=== PATIENT | male | born 1965 | race Caucasian/White ===

== ENCOUNTER 2021-01-01 08:59 | Emergency (ER) | payer MEDICAID, SELFPAY ==
[2021-01-01 09:14] VITALS: BP 151/100; PULSE 87; RESP 18; TEMP 36.5; O2SAT 95; BMI 32.3
--- NOTE | 2021-01-01 09:48 | ED.GENADULT ---
HPI - General Adult General Chief complaint: Back Pain/Injury Stated complaint: BACK PAIN Time Seen by Provider: 01/01/21 09:48 Source: patient and reflector driller and deburrer Limitations: language barrier History of Present Illness HPI narrative: Patient interviewed with the reflector driller and deburrer. Patient presents with lower back pain worsening over the past week. Patient works as a personal development coach with extensive labor. Patient denies any nausea vomiting loss of bowel movements. Patient has a known history of back pain and told he has arthritis in the past. Patient states he has been told he has arthritis of multiple joints. Patient has taken no [id number] medications for the pain. Patient states pain increases when he lifts anything heavy or twists his back. Pain is 7/10. Patient states he has not been vaccinated for the COVID virus at this time but plans on getting the vaccine. Symptoms are mild to moderate. Related Data Previous Rx's Medication Instructions Recorded ibuprofen 600 mg PO Q6H #30 tab 01/01/21 methocarbamol [Robaxin-750] 750 mg PO TID #20 tab 01/01/21 Allergies Allergy/AdvReac Type Severity Reaction Status Date / Time FRUIT Allergy Unknown SWELLING Uncoded 05/15/20 18:13 Review of Systems Review of Systems: Constitutional : No Weight loss, No Fever, No Chills ENT/Mouth : No Hearing loss, No Ear Pain, No Nasal Congestion, No Sinus Pain, No Hoarseness, No sore throat, No Rhinorrhea, No Swallowing Difficulty Eyes: No Eye Pain, No Swelling, No Redness, No Foreign Body, No Discharge, No Vision Changes Cardiovascular : No Chest Pain, No SOB, No Dyspnea on Exertion Respiratory : No Cough, No Sputum, No Wheezing, No Smoke Exposure, No Dyspnea Gastrointestinal : No Nausea, No Vomiting Genitourinary : No loss of bowel movements or incontinence. Musculoskeletal : Lumbar back pain Neuro : No Weakness, No Numbness, No Paresthesias, No Loss of Consciousness, No Dizziness, No Headache Psych : No Anxiety/Panic, No Depression, No SI/HI/AH/VH, No Social Issues, Heme/Lymph: No Bruising, No Bleeding,No Lymphadenopathy Endocrine : No Polyuria, No Polydipsia, No Temperature Intolerance PMFSH Past Medical History Attestation statement: The following information was validated with the patient. Medical History Arthritis No known health problems Social History Social History Advance Directives: Yes Advance Directives Information Provided: Yes Advance Directives on File: No Physical Exam Vital Signs: Vital Signs: Last Vital Signs Temp 97.7 F 01/01/21 09:14 Pulse 87 01/01/21 09:14 Resp 18 01/01/21 10:40 BP 151/100 H 01/01/21 09:14 Pulse Ox 95 01/01/21 09:14 Body Mass Index 32.3 vital signs have been reviewed as normal and appeared to be correct. Blood pressure normal. Heart rate normal. Respiration rate normal. Temperature normal. Oxygen saturation normal. Appearance: Alert. Oriented X3. No acute distress. Head: Normal external exam. Normocephalic. Atraumatic. No Tamayo signs noted. No raccoon eyes noted Eyes: PERRLA. EOMI. Conjunctiva and sclera normal. Eyelids normal. ENT: Pharynx normal. Uvula midline. Moist mucous membranes. No trismus noted. No drooling noted. No muffled voice noted. Neck: Soft full range of motion, no JVD CVS: Heart regular rate and rhythm no murmurs and rubs Respiratory: Breath sounds are clear to auscultation bilaterally. No accessory muscle use noted. Abdomen: Soft nontender no rebound or guarding positive bowel sounds Back: Diffuse paraspinal muscle tenderness positive straight leg raise on the right. Pain increases with any range of motion and ambulation. Skin: Skin warm and dry. Normal skin color. Normal skin turgor. No rashes/lesions/lacerations noted. Extremities: No lower extremity edema. Extremities exhibit normal range of motion. Extremities nontender. Neuro: Oriented X 3. No motor deficit. No sensory deficit. Reflexes normal. Course Course Course Narrative: Patient's exam is consistent with underlying arthritic changes in the back and/or disc disease. Positive straight leg raise on the right. Close follow-up with PCP is recommended for possible physical therapy referral and outpatient MRI. Discharge Plan Discharge Clinical Impression: Lumbar radiculopathy, Sciatica Patient Disposition: Home, Self-Care Instructions: Acute Low Back Pain (ED) Additional Instructions: Close follow-up as needed with PCP for possible physical therapy referral and/or outpatient MRI medications as directed. Prescriptions: New ibuprofen 600 mg tablet 600 mg PO Q6H Qty: 30 RF: 0 methocarbamol [Robaxin-750] 750 mg tablet 750 mg PO TID Qty: 20 RF: 0 Stand Alone Forms: Work/School Release Interventions: ED Discharge Assessment Last Done: 01/01/21 10:46 Discharge Date/Time: 01/01/21 10:46
[2021-01-01] MEDS: Ketorolac Tromethamine 30 MG/ML VIAL IM (10:00)
[2021-01-01 10:40] VITALS: RESP 18
== END 2021-01-01 10:46 | disposition home or self-care (01) ==
PROVIDERS: Emergency Provider Emergency Medicine; PCP Internal Medicine
DX: M54.16 Radiculopathy, lumbar region (principal); M54.41 Lumbago with sciatica, right side
CPT/HCPCS: 96372; 99283; 99284; J1885

== ENCOUNTER 2021-03-24 10:12 | Outpatient (REF) | payer MEDICAID, SELFPAY ==
--- NOTE | ~2021-03-24 | XR_ITS ---
EXAMINATION: XR HAND, LEFT CLINICAL INFORMATION: Iterative finger pain. COMPARISON: None TECHNIQUE: PA, lateral, and oblique views of the left hand. FINDINGS: The bones and soft tissues are normal. No fracture. Alignment is anatomic. Joint spaces are maintained. No erosions or soft tissue calcifications. XR/XR hand LT min 3V IMPRESSION: Unremarkable left hand exam.
== END 2021-03-24 10:13 | disposition home or self-care (01) ==
LOC: HO.XRAY 10:12
PROVIDERS: Absent Provider Internal Medicine; PCP Internal Medicine; Visit Provider General Practice
DX: M65.322 Trigger finger, left index finger (principal); M79.642 Pain in left hand
CPT/HCPCS: 73130

== ENCOUNTER 2021-06-09 11:01 | Emergency (ER) | payer MEDICAID, SELFPAY ==
--- NOTE | ~2021-06-09 | CT_ITS ---
EXAMINATION: CT LUMBAR SPINE WITHOUT CONTRAST CLINICAL INFORMATION: Low back pain. COMPARISON: None TECHNIQUE: Axial 2 mm thin and reformatted 2 mm thin sagittal coronal images of lumbar spine were obtained. This CT examination was performed using dose optimization techniques as appropriate, variously including the following: *Automated exposure control *Adjustment of mA and/or kV according to patient size (this includes techniques or standardized protocols for targeted exams where dose is matched to indication/reason for exam; i.e. extremities or head) *Use of iterative reconstruction technique DLP; 520 mGy-cm FINDINGS: There is normal lumbar lordosis. The vertebral heights, alignment are normal. There is mild loss of L5-S1 disc height with mild posterior spondylosis L4-L5 and L5/S1 disc levels. Rest the disc heights are normal. The T12-L1, L1-L2 and L2-L3 disc levels are unremarkable. At L3-L4 disc level is minimal bulge flattening the ventral thecal sac without spinal canal stenosis. The neural foramina are mildly narrowed bilaterally. At L4-L5 disc level there is a posterior annular calcification/bulge complex with mild AP canal stenosis. The neural foramina are patent bilaterally. At L5-S1 disc level there is diffuse bulge with mild AP canal stenosis. The neural foramina are patent bilaterally. There is no visible fracture, lytic or sclerotic process seen. No pars defect or listhesis. The paravertebral soft tissues are normal. CT/CT lumbar spine wo con IMPRESSION: No acute fracture, lytic or sclerotic process. Mild degenerative disc bulges L3-L4, annular calcification/bulge complex at L4-L5 and mild bulge at L5-S1 disc levels with mild AP canal stenosis at the L4-L5 and L5-S1 disc levels.
--- NOTE | ~2021-06-09 | US_ITS ---
EXAMINATION: US VENOUS ULTRASOUND WITH DOPPLER LOWER EXTREMITY, RIGHT CLINICAL INFORMATION: Pain right knee to calf. COMPARISON: None TECHNIQUE: Ultrasound of the deep veins is performed from the hip to the calf with compression sonography and color and pulse Doppler assessment. Spectral analysis with color-flow imaging is performed. FINDINGS: There is normal venous compression and respiratory variation and augmented flow. The visualized common femoral vein, superficial femoral vein, profunda femoral vein, popliteal vein, and the trifurcation region shows no evidence of deep venous thrombosis. There is no significant popliteal fossa cyst. If the patient's symptoms persist, followup ultrasound in 5 days 7 days might be of value to exclude proximal propagation from a non-visualized calf vein. US/US venous duplex LE RT IMPRESSION: No DVT demonstrated in the right lower extremity.
[2021-06-09 11:29] VITALS: BP 152/90; PULSE 74; RESP 18; TEMP 36.6; O2SAT 96; BMI 34.3
[2021-06-09 12:35] LABS: MANUAL DIFF FLAG NO
[2021-06-09 12:37] LABS: Basophils Percent Auto 0.3 % (0-2); Eosinophils Absolute Auto 0.2 X10*3/uL (0.0-0.4); Eosinophils Percent Auto 2.5 % (0-4); Hematocrit 41.5 % (42-52); Hemoglobin 14.9 g/dl (14.0-18.0); Imm Gran Abs Auto 0.02 X10*3/uL (0.00-0.03); Imm Gran Pct Auto 0.3 % (0.0-0.4); Lymphocytes Percent Auto 31.2 % (20-40); Mean Corpuscular HGB Conc 35.9 g/dl (31.0-36.0); Mean Corpuscular Hemoglobin 32.9 pg (27.0-33.0); Mean Corpuscular Volume 91.6 fL (80-98); Monocytes Absolute Auto 0.6 X10*3/uL (0.1-1.2); Monocytes Percent Auto 9.7 % (2-11); Neutrophils Absolute Auto 3.6 X10*3/uL (2.0-8.3); Platelet Count 164 X10*3/uL (160-400); Red Blood Count 4.53 X10*6/uL (4.60-5.80); Red Cell Distribution Width 11.4 % (11.0-16.0); White Blood Count 6.4 X10*3/uL (4.8-10.8)
[2021-06-09 13:09] LABS: Alanine Aminotransferase 41 U/L (0-40); Albumin Level 4.3 g/dL (3.5-5.0); Alkaline Phosphatase 112 U/L (39-117); Anion Gap 14 (12-20); Aspartate Amino Transferase 27 U/L (5-37); Bilirubin Direct 0.2 mg/dL (0.0-0.5); Bilirubin Total 0.4 mg/dL (0.0-1.0); Blood Urea Nitrogen 14 mg/dL (9-16); Calcium 9.4 mg/dL (8.4-10.2); Carbon Dioxide 26 mmol/L (22-29); Chloride 100 mmol/L (96-108); Estimated Glomerular Filt Rate > 60; Glucose Random 279 mg/dL (60-115); Lipase 58 U/L (8-78); Potassium 4.5 mmol/L (3.3-5.1); Sodium 135 mmol/L (135-145); Total Protein 7.6 g/dL (6.5-8.0)
[2021-06-09 15:37] LABS: Appearance Urine CLEAR; Color Urine YELLOW; Glucose Urine UA >=1000 MG/DL (NEG); Leukocyte Esterase Urine NEG (NEG); Nitrite Urine NEG (NEG); Specific Gravity - Urine 1.025 (1.005-1.025); Urine Blood NEG (NEG); Urine Ketones 5 MG/DL (NEG); Urine Protein NEG (NEG-TRACE)
[2021-06-09 15:57] LABS: Mucus Urine TRACE /LPF; Squamous Epithelial Cell Urine TRACE /LPF
[2021-06-09 15:58] LABS: RBC Urine 0-2 /HPF (0); WBC Urine 0 /HPF (0-4)
[2021-06-09] MEDS: oxyCODONE HCl Immed Release 5 MG TABLET PO (16:03)
--- NOTE | 2021-06-09 16:48 | ED_ITS ---
HPI - Back Pain/Injury General Chief Complaint: Extremity Injury, Lower Stated Complaint: rt leg pain Time Seen by Provider: 06/09/21 15:40 Source: patient Mode of arrival: ambulatory Limitations: no limitations History of Present Illness HPI Narrative: 55-year-old male with a past medical history of diabetes, hyper tension, hyperlipidemia, Lyme disease, degenerative joint disease and arthritis presenting to the ED with complaints of lower back pain radiating to his right knee/calf for the past 2 weeks worse today. He reports he has never had this in the past. He is concerned for blood clot due to someone told him he could have a blood clot in his leg. He denies any fevers, chills, dizziness, headaches, ne ck pain/stiffness, nausea/vomiting, change in vision, chest pain or shortness of breath and dyspnea on exertion, orthopnea, abdominal pain, dysuria, hematuria, abnormal penile discharge, diarrhea or constipation, recent travel or sick contacts, recent immobilizations, recent travel on a long plane/train/car ride, history of hypercoagulation disorder, any estrogen usage, history of cancer or recent surgery, urinary/bowel retention/incontinence or any other symptoms complaints or concerns at this time. MD elicited complaint: back pain Onset (ago): week(s) (For the past 2 weeks worse today) Timing: constant and progressively worsening Severity: moderate Similar Symptoms Previously: No Quality: sharp and aching Location: lumbar spine Radiation: right upper leg and right leg below the knee Exacerbating factors: movement Relieving factors: none Context: unknown Associated symptoms: denies other symptoms Work related injury: No Related Data Previous Rx's Medication Instructions Recorded ibuprofen 600 mg tablet 600 mg PO Q6H #30 tab 01/01/21 methocarbamol 750 mg tablet 750 mg PO TID #20 tab 01/01/21 (Robaxin-750) acetaminophen 500 mg tablet 1,000 mg PO QID PRN #14 tab 06/09/21 (Tylenol Extra Strength) cyclobenzaprine 10 mg tablet 10 mg PO Q8H PRN #14 tab 06/09/21 ibuprofen 800 mg tablet 800 mg PO Q8H PRN #14 tab 06/09/21 lidocaine HCl 4 % topical cream 1 appl TOPICAL BID PRN #120 g 06/09/21 (Aspercreme (lidocaine HCl)) oxycodone 5 mg tablet 5 mg PO Q6H PRN #14 tab 06/09/21 prednisone 20 mg tablet 40 mg PO DAILY 5 Days #10 tab 06/09/21 Allergies Allergy/AdvReac Type Severity Reaction Status Date / Time FRUIT Allergy Unknown SWELLING Uncoded 05/15/20 18:13 Review of Systems Review of Systems: Constitutional : No trauma, No Weight loss, No Fever, No Chills, ENT/Mouth : No Hearing loss, No Ear Pain, No Nasal Congestion, No Sinus Pain, No Hoarseness, No sore throat, No Rhinorrhea, No Swallowing Difficulty Cardiovascular : No Chest Pain, No SOB Respiratory : No Cough, No Dyspnea Gastrointestinal : No Nausea, No Vomiting, No Diarrhea, No abdominal Pain, No Hematochezia, No Melena Genitourinary : No Dysuria, No Urinary Frequency, No Hematuria, No Urinary or Bowel Incontinence/retention Musculoskeletal : + Back pain, + right leg/knee pain/calf pain, No neck pain, No joint stiffness, No joint swelling Skin : No Skin Lesions, No rash or signs of infection Neuro : No Weakness, No radiation, No Numbness, No Paresthesias, No headache, no loss of bowel or bladder incontinence, no saddle anesthesia, Focal weakness, No radiation Denies history of IV drug usage. Yes all other systems are reviewed and are negative [facility] Past Medical History Attestation statement: The following information was validated with the patient. Medical History Arthritis Social History Social History Advance Directives: No Physical Exam Vital Signs: Vital Signs: Last Vital Signs Temp 97.9 F 06/09/21 11:29 Pulse 74 06/09/21 11:29 Resp 18 06/09/21 11:29 BP 152/90 H 06/09/21 11:29 Pulse Ox 96 06/09/21 11:29 Body Mass Index 34.3 vital signs have been reviewed as normal and appeared to be correct. Blood pressure normal. Heart rate normal. Respiration rate normal. Temperature normal. Oxygen saturation normal. Appearance: Alert. Oriented X3. No acute distress. Head: Normal external exam. Normocephalic. Atraumatic. Eyes: PERRLA. EOMI. Conjunctiva and sclera normal. Eyelids normal. ENT: EAC normal. TM's Normal. Pharynx normal. Uvula midline. Moist mucous membr anes. Neck: Normal inspection. Neck supple. FROM. No adenopathy. Thyroid Normal. No meningeal signs. No neck mass noted. CVS: Normal heart rate and rhythm. Heart sound normal. No murmurs noted. Pulses normal throughout. Respiratory: No respiratory distress. Painless inspiration. Breath sounds nor mal. No wheezes/rales/rhonchi noted. Chest nontender. No accessory muscle usage noted or decreased air movement noted. Abdomen: Soft and nontender. Bowel sounds normal in all 4 quadrants. No distent ion noted. No organomegaly noted. No visible injury noted. Back: No CVA tenderness. Full range of motion noted. No obvious deformities, or edema. Mild para-spinal muscular tenderness from lumbar region to coccyx. Full ROM in back and lower extremities. 5/5 strength hip extension/flexion, abductio n, adduction. Mild Lumbar pain with hip flexion against resistance. Straight leg raise test negative on right; Straight leg raise test negative on left; Reflexes normal ankle and knee bilaterally; EHL motor strength normal bilaterally. No rashes/lesion/induration/fluctuance or signs infection noted. Skin: Skin warm and dry. Normal skin color. Normal skin turgor. No rashes/lesions/lacerations noted. Extremities: Patient with tenderness outpatient to right posterior knee/calf. No signs of infection. No edema noted. Otherwise all other Extremities exhibit normal range of motion and nontender. Neuro: Oriented X 3. No motor deficit. No sensory deficit. Reflexes normal. Patient has a normal steady gait. Course Course Course Narrative: 55-year-old male with a past medical history of diabetes, hypertension, hyperlipidemia, Lyme disease, degenerative joint disease and arthritis presenting to the ED with complaints of lower back pain radiating to his right knee/calf for the past 2 weeks worse today. He reports he has never had this in the past. He is concerned for blood clot due to someone told him he could have a blood clot in his leg. He denies any fevers, chills, dizziness, headaches, neck pain/stiffness, nausea/vomiting, change in vision, chest pain or shortness of breath and dyspnea on exertion, orthopnea, abdominal pain, dysuria, hematuria, abnormal penile discharge, diarrhea or constipation, recent travel or sick contacts, recent immobilizations, recent travel on a long plane/train/car ride, history of hypercoagulation disorder, any estrogen usage, history of ca ncer or recent surgery, urinary/bowel retention/incontinence or any other symptoms complaints or concerns at this time. Labs were obtained in triage and patient noted to have mild anemia. A random g lucose 279. ALT 41. Otherwise all other labs within normal limits. UA revealed 1000 glucose and 5 ketones otherwise no evidence of UTI. Gonorrhea/chlamydia are pending. Venous duplex ultrasound of right lower extremity negative for DVT or any other acute processes. CT scan of lumbar spine without contrast revealed chronic changes such as bulging disc and arthritis otherwise no other acute proc esses. Therefore at this time will DC home with symptomatic treatment I printed out the results and given to the patient so he can follow up with primary care provider for further evaluation treatment and referral to possibly portfolio specialist and to return if any new or worsening symptoms. Patient understands agrees with this plan. MDM - Back Pain/Injury Medical Records Attestation: I reviewed the patient's medical records. Lab Data Attestation: I reviewed the patient's lab results. Result diagrams: 06/09/21 12:32 06/09/21 12:32 Labs: Lab Results 06/09/21 06/09/21 06/09/21 Range/Units 12:32 12:32 15:29 WBC 6.4 (4.8-10.8) X10*3/uL RBC 4.53 L (4.60-5.80) X10*6/uL Hgb 14.9 (14.0-18.0) g/dl Hct 41.5 L (42-52) % MCV 91.6 (80-98) fL MCH 32.9 (27.0-33.0) pg MCHC 35.9 (31.0-36.0) g/dl RDW 11.4 (11.0-16.0) % Plt Count 164 (160-400) X10*3/uL MPV 10.0 (9.4-12.4) fL Immature Gran % (Auto) 0.3 (0.0-0.4) % Neut % (Auto) 56.0 (45-73) % Lymph % (Auto) 31.2 (20-40) % [place] % (Auto) 9.7 (2-11) % Eos % (Auto) 2.5 (0-4) % Baso % (Auto) 0.3 (0-2) % Lymph # (Auto) 2.0 (1.2-4.9) X10*3/uL [place] # (Auto) 0.6 (0.1-1.2) X10*3/uL Eos # (Auto) 0.2 (0.0-0.4) X10*3/uL Baso # (Auto) 0.0 (0.0-0.2) X10*3/uL Abs Immat Gran (auto) 0.02 (0.00-0.03) X10*3/uL Absolute Neuts (auto) 3.6 (2.0-8.3) X10*3/uL Absolute Nucleated RBC 0.000 (0.0-0.012) X10*3/uL Nucleated RBC % (auto) 0.0 (0.0-0.2) /100WBC Sodium 135 (135-145) mmol/L Potassium 4.5 (3.3-5.1) mmol/L Chloride 100 (96-108) mmol/L Carbon Dioxide 26 (22-29) mmol/L Anion Gap 14 (12-20) BUN 14 (9-16) mg/dL Creatinine 0.90 (0.5-1.4) mg/dL Estim Creat Clear Calc 93.0 Estimated GFR > 60 Random Glucose 279 H (60-115) mg/dL Calcium 9.4 (8.4-10.2) mg/dL Total Bilirubin 0.4 (0.0-1.0) mg/dL Direct Bilirubin 0.2 (0.0-0.5) mg/dL AST 27 (5-37) U/L ALT 41 H (0-40) U/L Alkaline Phosphatase 112 (39-117) U/L Total Protein 7.6 (6.5-8.0) g/dL Albumin 4.3 (3.5-5.0) g/dL Lipase 58 (8-78) U/L Urine Color YELLOW Urine Appearance CLEAR Urine pH 6.0 (5.0-8.0) Ur Specific [place] 1.025 (1.005-1.025) Urine Protein NEG (NEG-TRACE) MG/DL Urine Glucose (UA) >=1000 H (NEG) MG/DL Urine Ketones 5 (NEG) MG/DL Urine Blood NEG (NEG) Urine Nitrite NEG (NEG) Ur Leukocyte Esterase NEG (NEG) Urine RBC 0-2 (0) /HPF Urine WBC 0 (0-4) /HPF Ur Squamous Epith Cells TRACE /LPF Urine Bacteria NONE /LPF Urine Mucus TRACE /LPF Imaging Data Venous duplex ultrasound of right lower extremity: Attestation: I personally reviewed and interpreted this imaging study as follows: Radiologist's impression: FINDINGS: There is normal venous compression and respiratory variation and augmented flow. The visualized common femoral vein, superficial femoral vein, profunda femoral vein, popliteal vein, and the trifurcation region shows no evidence of deep venous thrombosis. ? There is no significant popliteal fossa cyst. If the patient's symptoms persist, followup ultrasound in 5 days 7 days might be of value to exclude proximal propagation from a non-visualized calf vein. US/US venous duplex LE RT IMPRESSION: No DVT demonstrated in the right lower extremity. CT scan of thoracic spine without contrast: Attestation: I personally reviewed and interpreted this imaging study as follows: Radiologist's impression: FINDINGS: There is normal lumbar lordosis. The vertebral heights, alignment are normal. There is mild loss of L5-S1 disc height with mild posterior spondylosis L4-L5 and L5/S1 disc levels. Rest the disc heights are normal. The T12-L1, L1-L2 and L2-L3 disc levels are unremarkable. At L3-L4 disc level is minimal bulge flattening the ventral thecal sac without spinal canal stenosis. The neural foramina are mildly narrowed bilaterally. At L4-L5 disc level there is a posterior annular calcification/bulge complex with mild AP canal stenosis. The neural foramina are patent bilaterally. At L5-S1 disc level there is diffuse bulge with mild AP canal stenosis. The neural foramina are patent bilaterally. There is no visible fracture, lytic or sclerotic process seen. No pars defect or listhesis. The paravertebral soft tissues are normal. CT/CT lumbar spine wo con IMPRESSION: No acute fracture, lytic or sclerotic process. ? Mild degenerative disc bulges L3-L4, annular calcification/bulge complex at L4-L5 and mild bulge at L5-S1 disc levels with mild AP canal stenosis at the L4-L5 and L5-S1 disc levels.? Critical Care Time Critical Care Time Critical Care Time: Yes Total Critical Care Time: 60 Attestation: I personally attest to this time spent taking care of the patient Discharge Plan Discharge Clinical Impression: Degenerative joint disease, Bulging lumbar disc Patient Disposition: Home, Self-Care Instructions: Osteoarthritis (ED), Acute Low Back Pain (ED), Lumbar Radicu lopathy (ED), Lower Back Exercises (ED) Prescriptions: New cyclobenzaprine 10 mg tablet 10 mg PO Q8H PRN (Reason: Muscle spasm) Qty: 14 RF: 0 ibuprofen 800 mg tablet 800 mg PO Q8H PRN (Reason: pain) Qty: 14 RF: 0 prednisone 20 mg tablet 40 mg PO DAILY 5 Days Qty: 10 RF: 0 acetaminophen [Tylenol Extra Strength] 500 mg tablet 1,000 mg PO QID PRN (Reason: fever or pain) Qty: 14 RF: 0 oxycodone 5 mg tablet 5 mg PO Q6H PRN (Reason: pain) Qty: 14 RF: 0 lidocaine HCl [Aspercreme (lidocaine HCl)] 4 % cream 1 appl topical BID PRN (Reason: pain) Qty: 120 RF: 0 No Action ibuprofen 600 mg tablet 600 mg PO Q6H Qty: 30 RF: 0 methocarbamol [Robaxin-750] 750 mg tablet 750 mg PO TID Qty: 20 RF: 0 Referrals: Rajat Leonard MD [Primary Care Provider] - 2 days Stand Alone Forms: Work/School Release Print Language: Spanish
[2021-06-10 02:13] LABS: CT PCR NOT DETECTED (Not Detect.)
[2021-06-10 02:14] LABS: NG PCR NOT DETECTED (Not Detect.)
== END 2021-06-09 17:49 | disposition home or self-care (01) ==
PROVIDERS: Physician Assistant Medical; Emergency Provider Emergency Medicine; PCP Internal Medicine
DX: M47.896 Other spondylosis, lumbar region (principal); R60.0 Localized edema; M25.561 Pain in right knee; Z79.899 Other long term (current) drug therapy; Z20.828 Contact with and (suspected) exposure to other viral communicable diseases
CPT/HCPCS: 36415; 72131; 80048; 80076; 81001; 83690; 85025; 87491; 87591; 93971; 99284; 99291

== ENCOUNTER → 2022-09-16 10:22 | Outpatient (BNVA) | payer MEDICAID, SELFPAY | PROVIDERS: PCP Internal Medicine; Referring Provider Internal Medicine; Visit Provider Surgery | DX: L72.3 Sebaceous cyst (principal) | CPT/HCPCS: 99202 ==

== ENCOUNTER 2022-10-12 07:27 | Outpatient (REF) | payer MEDICAID, SELFPAY ==
[2022-10-12 07:35] VITALS: BMI 32.3
[2022-10-12 07:36] VITALS: BP 130/77; PULSE 66; RESP 16; TEMP 36.4; O2SAT 96
[2022-10-12 08:19] VITALS: BP 128/80; PULSE 64; RESP 16; O2SAT 98
--- NOTE | 2022-10-12 08:23 | P.OP_ITS ---
Operative Note Operative Note Date of Service: 10/12/22 Narrative: Preoperative diagnosis: Epidermal inclusion cyst posterior mid back Postoperative diagnosis: Same Procedure: Excision of epidermal inclusion cyst midback Surgeon: Justin Pride MD Nozzle And Sleeve Worker: None Anesthesia: Sensorcaine 0.5% with epinephrine Indications for procedure: Enlarging epidermal inclusion cyst midback with increased pain. Operative findings: 1.5 cm epidermal inclusion cyst midback Specimen: Epidermal inclusion cyst midback Estimated blood loss: Less than 1 mL Complications: None Procedure details: Patient was brought to the minor surgery suite and placed in a prone position. The site of surgery was confirmed by the patient in the mid back. After assuring informed consent the skin was prepped with Betadine and draped in a sterile fashion. Local anesthesia was then infiltrated circumferentially around the cyst. An oblique incision was then created to include the central punctum. The incision was carried down through epidermis, dermis and into the subcutaneous tissue. Dissection was continued around the cyst wall. The cyst was completely dissected free from the subcutaneous tissue passed off the table for further examination by pathology. After assuring adequate hemostasis the dermis was reapproximated using interrupted 3-0 Polysorb sutures. Skin was then closed using interrupted 3-0 Prolene sutures. Sterile dressings consisting of 2 x 2 gauze and Tegaderm were then applied. The patient tolerated the procedure well. Sponge, instrument, and needle counts were correct. The patient was discharged to home in stable condition.
== END 2022-10-12 07:28 | disposition home or self-care (01) ==
LOC: HO.MS 07:27
PROVIDERS: PCP Internal Medicine; Visit Provider Surgery
PROC: (CPT 11403; principal; 2022-10-12 08:00)
DX: L72.0 Epidermal cyst (principal)
CPT/HCPCS: 11403; 88304

== ENCOUNTER → 2022-10-19 09:04 | Outpatient (BNVA) | payer MEDICAID, SELFPAY | PROVIDERS: PCP Internal Medicine; Visit Provider Surgery | DX: Z13.89 Encounter for screening for other disorder (principal) ==

== ENCOUNTER 2022-11-22 09:36 | Emergency (ER) | payer MEDICAID, SELFPAY ==
[2022-11-22 09:39] VITALS: BP 116/75; PULSE 65; RESP 20; TEMP 36.6; O2SAT 97; BMI 34.3
--- NOTE | 2022-11-22 10:45 | ED.GENADULT ---
HPI - General Adult General Chief complaint: General Medical Stated complaint: r sided pain back head into back and legs Time Seen by Provider: 11/22/22 10:42 Source: patient and traveling sales representative Mode of arrival: ambulatory Limitations: language barrier History of Present Illness HPI narrative: Patient is a 57 year old assigned male at with a history of bulging discs and a recent sebaceous cyst removal presenting to the emergency department today with concerns over his surgical wound and right sided back pain. Patient states that he is continuing to have right sided back pain and yesterday he noticed some discharge from his previous sebaceous cyst removal wound. Patient denies any dizziness, lightheadedness, abdominal pain, nausea, vomiting, fever, chills, blurry vision, double vision, loss of vision, chest pain, difficulty breathing, shortness of breath, night sweats, pain with urination, increased urinary frequency, increased urinary urgency, blood in his urine or stool, syncope or a near syncopal episode, recent trauma or falls, bowel incontinence, bladder incontinence, bowel retention, bladder retention, or any other complaints at this time. Onset (ago): day(s) Location: back Severity: mild Severity scale (1-10): 3 Relieving factors: none Exacerbating factors: none Associated symptoms: denies other symptoms Treatments prior to arrival: none Related Data Home Medications Medication Instructions Recorded Confirmed blood sugar diagnostic (FreeStyle #10 ea 09/16/22 10/19/22 Lite Strips) lancets 33 gauge (TRUEplus Lancets) #100 ea 09/16/22 10/19/22 metformin 1,000 mg tablet 1,000 mg PO 09/16/22 10/19/22 rosuvastatin 40 mg tablet 40 mg PO QPM 09/16/22 10/19/22 Previous Rx's Medication Instructions Recorded ibuprofen 800 mg tablet 800 mg PO Q8H PRN pain #14 tabs 06/09/21 cane #1 ea 11/22/22 cane #1 ea 11/22/22 cyclobenzaprine 5 mg tablet 5 mg PO TID PRN back pain 7 days 11/22/22 #21 tabs prednisone 20 mg tablet 20 mg PO DAILY 7 days #7 tabs 11/22/22 Allergies Allergy/AdvReac Type Severity Reaction Status Date / Time FRUIT Allergy Unknown SWELLING Uncoded 09/16/22 10:31 Review of Systems Constitutional: Constitutional: Reports no additional constitutional complaints, Denies chills, Denies fever(s) and Denies night sweats Eyes: Eyes: Reports no additional eye complaints, Denies blurry vision, Denies change in vision, Denies diplopia, Denies eye discharge, Denies loss of vision and Denies eye pain ENT: Denies dizziness Cardiovascular: Cardiovascular: Reports no additional cardiovascular complaints, Denies chest pain, Denies lightheadedness, Denies Loss of Consciousness and Denies dyspnea Respiratory: Respiratory: Reports no additional respiratory complaints and Denies dyspnea Gastrointestinal: Gastrointestinal: Reports no additional gastrointestinal complaints, Denies abdominal pain, Denies melena, Denies hematochezia, Denies change in bowel habits and Denies change in stool character Genitourinary: Genitourinary: Reports no additional male genitourinary complaints, Denies hematuria, Denies oliguria, Denies difficulty urinating, Denies dysuria, Denies urinary frequency, Denies urinary hesitancy, Denies urinary incontinence and Denies urinary urgency Musculoskeletal: Musculoskeletal: Reports no additional musculoskeletal complaints, Reports back pain, Denies numbness and Denies tingling Neurologic: Denies dizziness, Denies loss of vision, Denies numbness and Denies tingling Psychiatric: Psychiatric: Reports no additional psychiatric complaints Endocrine: Endocrine: Reports no additional endocrine complaints Hematologic/Lymphatic: Hematologic/Lymphatic: Reports no additional hematologic/lymphatic complaints Allergic/Immunologic: Allergic/Immunologic: Reports no additional allergic/immunologic complaints [facility] Past Medical History Attestation statement: The following information was validated with the patient. Source: old records reviewed and nursing notes reviewed Medical History Arthritis Surgical History H/O excision of epidermal inclusion cyst (10/12/22) H/O excision of mass Family History Family History Father Throat cancer Sister Skin cancer Leukemia Breast CA Family/Other Thyroid ca Social History Social History Advance Directives: No Advance Directives Information Provided: Yes Physical Exam ED Vital Signs: Vital Signs - 24 hr 11/22/22 09:39 11/22/22 11:19 Temperature 97.9 F 98.2 F Pulse Rate 65 66 Respiratory Rate 20 18 Blood Pressure 116/75 113/80 Pulse Oximetry 97 97 Oxygen Delivery Method Room Air Room Air BMI result Body Mass Index 34.3 Const General: cooperative, no acute distress, alert and awake Nutritional Appearance: well nourished Orientation/consciousness: patient oriented x3 Limitations: no limitations HENMT Head: Yes normal to inspection and Yes atraumatic Ears: hearing grossly normal bilaterally and external ears normal General nose exam: Normal external nose present, no nasal discharge noted and no epistaxis Face and sinus: Yes normal facial exam, No abrasion and No laceration Mouth: Normal oral and palatal mucosa present, no drooling and no muffled voice Eyes General: appearance normal, both eyes and all related structures Periorbital: periorbital findings normal Eyelids: Yes eyelids normal Conjunctivae: conjunctivae normal Pupils: Equal, round and reactive pupils present EOM: EOMs intact bilaterally Neck Neck: Yes normal visual inspection, Yes full ROM and Yes no lymphadenopathy Chest Chest palpation & inspection: normal inspection of the chest Resp Effort & Inspection: normal respiratory effort and able to speak in complete sentences Auscultation: clear to auscultation bilaterally Cardio Rate: regular rate Rhythm: regular rhythm GI Inspection: Yes normal to inspection General: Yes no CVA tenderness Back/Spine/Pelvis Back: no CVA tenderness Cervical Spine: normal cervical lordosis and cervical ROM normal Thoracic/Lumbar Spine: thoracic and lumbar spine normal to inspection and thoraco-lumbar ROM normal Neuro General: patient oriented x3 and moves all extremities Cranial nerves: Yes Equal, round and reactive pupils present Cognition (Neuro): normal cognition Motor exam (neuro): 5/5 motor strength present throughout Sensory Exam: Normal double simultaneous stimulation for sensation Coordination: [id number] test normal Extrem General: Yes normal to inspection, Yes full ROM and Yes capillary refill normal Psych Appearance: grossly normal Mental Status: mental status grossly normal Affect: normal affect Attitude: cooperative Thought process: Normal thought process present Thought content: Normal thought content present Insight: Good insight present (Psych) Medications Administered Discontinued Medications Generic Name Dose Route Start Last Admin Trade Name Freq PRN Reason Stop Dose Admin Cyclobenzaprine HCl 5 mg 11/22/22 11:37 11/22/22 11:58 Cyclobenzaprine Hcl 5 Mg Tablet PO 11/22/22 11:38 5 mg ONCE ONE Administration Ketorolac Tromethamine 15 mg 11/22/22 11:37 11/22/22 11:57 Ketorolac Tromethamine 15 Mg/Ml Vial IM 11/22/22 11:38 15 mg ONCE ONE Administration Methylprednisolone Sodium Succinate 60 mg 11/22/22 11:37 11/22/22 11:58 Methylprednisolone Sod Succ 125 Mg/2 Ml Vial IM 11/22/22 11:38 60 mg ONCE ONE Administration Medical Decision Making Medical Decision Making MDM Narrative: Patient is a 57 year old assigned male at with a history of bulging discs and recent sebaceous cyst removal presenting to the emergency department today with back pain and concern of his surgical wound. Patient's physical exam was unremarkable. Patient's sebaceous cyst removal wound is on the back and healing well - no drainage, no surrounded erythema, and no warmth. I explained my physical exam findings to the patient. I answered all questions asked by the patient. I stressed the importance of the patient taking his medication as prescribed. I stressed the importance of the patient following up with his primary care provider and a project controls specialist. I stressed the importance of the patient returning to the emergency department immediately if his symptoms were to worsen or if he were to develop any dizziness, shortness of breath, difficulty breathing, chest pain, blurry vision, loss of vision, nausea, vomiting, abdominal pain, fever, chills, back pain, or any other complaints. Patient verbalized agreement and understanding with this treatment plan and discharge Differential Diagnosis Differential Diagnoses: The differential diagnosis associated with the presentation includes back pain Discharge Plan Discharge Clinical Impression: Bulging lumbar disc Patient Disposition: Home, Self-Care Instructions: Back Pain (ED) Additional Instructions: Follow up with your primary care provider and a project controls specialist. Return to the emergency department immediately if your symptoms worsen or if you develop any dizziness, shortness of breath, difficulty breathing, chest pain, blurry vision, loss of vision, nausea, vomiting, abdominal pain, fever, chills, back pain, or any other complaints. Prescriptions: New prednisone 20 mg tablet 20 mg PO DAILY 7 Days Qty: 7 0RF cyclobenzaprine 5 mg tablet 5 mg PO TID PRN (Reason: back pain) 7 Days Qty: 21 0RF (DME) cane Device See Rx Instructions .Route Qty: 1 0RF Rx Instructions: As directed (DME) cane Device See Rx Instructions .Route Qty: 1 0RF Rx Instructions: As directed No Action ibuprofen 800 mg tablet 800 mg PO Q8H PRN (Reason: pain) Qty: 14 0RF metformin 1,000 mg tablet 1,000 mg PO (DME) FreeStyle Lite Strips Strip See Rx Instructions .ROUTE BID Qty: 10 Rx Instructions: As directed (DME) lancets [TRUEplus Lancets] 33 gauge misc See Rx Instructions .ROUTE BID Qty: 100 Rx Instructions: As directed rosuvastatin 40 mg tablet 40 mg PO QPM Referrals: [facility] [Provider Group] (Call to establish and follow up with a project controls specialist. Llame para establecer y hacer un seguimiento con un especialista en [place] vertebral.) Rajat Leonard MD [Primary Care Provider] - Interventions: ED Discharge Assessment Last Done: 11/22/22 12:04 Discharge Date/Time: 11/22/22 12:04 Print Language: Stateless
[2022-11-22 11:19] VITALS: BP 113/80; PULSE 66; RESP 18; TEMP 36.8; O2SAT 97
[2022-11-22] MEDS: Ketorolac Tromethamine 15 MG/ML VIAL IM (11:57)
[2022-11-22] MEDS: Cyclobenzaprine HCl 5 MG TABLET PO (11:58)
[2022-11-22] MEDS: methylPREDNISolone Sod Succ 125 MG/2 ML VIAL 60 MG IM (11:58)
== END 2022-11-22 12:04 | disposition home or self-care (01) ==
PROVIDERS: Emergency Provider Student in an Organized Health Care Education/Training Program; PCP Internal Medicine
DX: M54.50 Low back pain, unspecified (principal); M79.605 Pain in left leg; M79.604 Pain in right leg; E11.9 Type 2 diabetes mellitus without complications; Z79.899 Other long term (current) drug therapy; Z79.84 Long term (current) use of oral hypoglycemic drugs
CPT/HCPCS: 96372; 99283; 99284; J1885; J2930

== ENCOUNTER 2024-05-18 09:11 | Outpatient (REF) | payer MEDICAID, SELFPAY ==
[2024-05-18 14:14] LABS: MANUAL DIFF FLAG NO
[2024-05-18 14:28] LABS: Basophils Percent Auto 0.6 % (0-2); Eosinophils Absolute Auto 0.2 X10*3/uL (0.0-0.4); Eosinophils Percent Auto 2.8 % (0-4); Hematocrit 43.6 % (42.0-52.0); Hemoglobin 15.2 g/dl (14.0-18.0); Imm Gran Abs Auto 0.03 X10*3/uL (0.00-0.03); Imm Gran Pct Auto 0.6 % (0.0-0.4); Lymphocytes Absolute Auto 1.4 X10*3/uL (1.2-4.9); Lymphocytes Percent Auto 26.2 % (20-40); Mean Corpuscular HGB Conc 34.9 g/dl (31.0-36.0); Mean Corpuscular Hemoglobin 33.6 pg (27.0-33.0); Mean Corpuscular Volume 96.2 fL (80.0-98.0); Mean Platelet Volume 10.4 fL (9.4-12.4); Monocytes Absolute Auto 0.7 X10*3/uL (0.1-1.2); Monocytes Percent Auto 12.5 % (2-11); Neutrophils Absolute Auto 3.1 x10*3/uL (2.0-8.3); Neutrophils Percent Auto 57.3 % (45-73); Platelet Count 183 X10*3/uL (160-400); Red Blood Count 4.53 X10*6/uL (4.60-5.80); Red Cell Distribution Width 11.7 % (11.0-16.0); White Blood Count 5.4 X10*3/uL (4.8-10.8)
[2024-05-18 15:00] LABS: Alanine Aminotransferase 52 U/L (0-40); Albumin Level 4.1 g/dL (3.5-5.0); Alkaline Phosphatase 120 U/L (39-117); Anion Gap 12 (12-20); Aspartate Amino Transferase 40 U/L (5-37); Bilirubin Total 0.4 mg/dL (0.0-1.0); Blood Urea Nitrogen 14 mg/dL (9-16); Calcium 9.2 mg/dL (8.4-10.2); Carbon Dioxide 25 mmol/L (22-29); Chloride 106 mmol/L (96-108); Cholesterol 122 mg/dL (<200); Estimated Glomerular Filt Rate > 60; Glucose Random 216 mg/dL (60-115); HDL Cholesterol 36 mg/dL (>40); Potassium 3.6 mmol/L (3.3-5.1); Sodium 139 mmol/L (135-145); TSH reflex Free T4 0.46 uIU/mL (0.32-4.0); Total Protein 7.6 g/dL (6.5-8.0); Triglycerides 435 mg/dL (<150)
== END 2024-05-18 09:12 | disposition home or self-care (01) ==
LOC: HO.CHCLDS 09:11
PROVIDERS: Visit Provider Internal Medicine
DX: I10 Essential (primary) hypertension (principal); E11.9 Type 2 diabetes mellitus without complications
CPT/HCPCS: 36415; 80053; 80061; 84443; 85025

== ENCOUNTER 2025-01-11 08:21 | Outpatient (REF) | payer MEDICAID, SELFPAY ==
--- OUTSIDE RECORDS SUMMARY | 2025-01-11 08:33 | XMS_ITS | Encounter Summary ---
Author Organization [employer] Address [address] [place] [address] Care Team Providers Care Chin Strap Cutter Name Role Phone Rajat Leonard MD Primary Care Provider [phone]- [phone] Encounter Details Date Type Department Care Team (Late st Contact Info) Description 06/29/[address] [facility] MEDICINE [address] [place] [address] Rajat Leonard MD [address] [place], [place] [id number] Social History Tobacco Use Types Packs/Day Years Used Date Smoking Tobacco: Never Smokeless Tobacco: Never Depression Answer Date Recorded Patient Health Questionnaire-9 Score 2 08/24/2022 Housing Stability Answer Date Recorded What is your housing situation today? I have janet mayfield 06/25/[address] you li ve. Do you have problems with any of the following? None of the above 06/25/2023 Food Insecurity Answer Date Recorded Within the past 12 months, y ou worried that your food would run out before you got money to buy more: Never True 06/25/2023 Within the past 12 months,th e food you bought just didn't last and you didn't have enough money to get more: Never True Transportation Answer Date Recorded In the past 12 months, has l ack of transportation kept you from medical appts, meetings, work or from getting things needed for daily living? No 06/25/2023 Utilities Answer Date Recorded In the past 12 months, has t he electric, gas, oil or water company threatened to shut off services in your home? No 06/25/2023 Depression Answer Date Recorded Patient Health Questionnaire-2 Score 1 08/24/2022 Sex and Gender Information Value Date Recorded Sex Assigned at Male 06/28/2022 10:22 AM EDT Legal Sex Male 10:22 AM EDT Gender Identity Male 06/28/2022 10:22 AM EDT Sexual Orientation Choose not to disclose 2021 10:22 AM EDT documented as of this encounter Plan of Treatment Upcoming Encounters Date Type Department Care Team (Late st Contact Info) Description 01/17/2025 9:30 AM EDT Nutrition [facility] DIABETES/NTRN [address] [place] [address] Josy Morales, RD [address] [place], [place] [phone] 02/06/2025 9:45 AM EDT Office Visit [facility] MED & PEDS [address] [place] [address] Rajat Leonard MD [address] [place] [address] documented as of this encounter Visit Diagnoses Not on filedocumented in this encounter Additional Health Concerns Assessment Noted Time PHQ-9 Depression Total Score: 2 08/24/20 22 3:35 PM EST documented as of this encounter Care Teams Chin Strap Cutter Relationship Specialty Start Date End Date Rajat Leonard MD [address] [place] [address] PCP - General Internal Medicine 01/04/13 documented as of this encounter
--- OUTSIDE RECORDS SUMMARY | 2025-01-11 08:34 | XMS_ITS | Encounter Summary ---
Author Organization [employer] Address [address] [place] [address] Care Team Providers Care Inventory Assistant Name Role Phone Rajat Leonard MD Primary Care Provider [phone]- [phone] Encounter Details Date Type Department Care Team ([facility] st Contact Info) Description 07/30/2024 Orders Only [facility] MED & PEDS [address] [place] [address] Provider, MD Vipul Social History Tobacco Use Types Packs/Day Years Used Date Smoking Tobacco: Never Smokeless Tobacco: Never Depression Answer Date Recorded Patient Health Questionnaire-9 Score 16 08/04/2023 Patient Health Questionnaire-9 Score 16 08/04/2023 Last PHQ-9: Questionnaire Data Not on file 1 10/05/2022 Housing Stability Answer Date Recorded What is [...] Answer Date Recorded Patient Health Questionnaire-2 Score 6 08/04/2023 Sex and Gender Information Value Date Recorded Sex Assigned at Male 06/28/2022 10:22 AM EDT Legal Sex Male 10:22 AM EDT Gender Identity Male 06/28/2022 10:22 AM EDT Sexual Orientation Choose not to disclose 2021 10:22 AM EDT documented as of this encounter Plan of Treatment Upcoming Encounters Date Type Department Care Team (Late st Contact Info) Description 01/17/2025 9:30 AM EDT Nutrition [facility] DIABETES/NTRN [address] [place], [place] [phone] Josy Morales, RD [address] [place], [place] [phone] 02/06/2025 9:45 AM EDT Office Visit [facility] MED & PEDS [address] [place], [place] [phone] Rajat Leonard MD [address] [place], [place] [phone] documented as of this encounter Procedures Procedure Name Priority Date/Time Associated Diagnosis Comments DIABETES EYE EXAM Routine 07/30/2024 3:18 PM EST documented in this encounter Results * Diabetes Eye Exam (07/30/2024 3:18 PM EST) Historical Provider HEALTH MAINTENANCE Final Result documented in this encounter Visit Diagnoses Not on filedocumented in this encounter Additional Health Concerns Assessment Noted Time PHQ-9 Depression Total Score: 16 023 1:25 PM EST documented as of this encounter Care Teams Inventory Assistant Relationship Specialty Start Date End Date Rajat Leonard MD [address] [place] [address] PCP - General Internal Medicine 01/04/13 documented as of this encounter
--- OUTSIDE RECORDS SUMMARY | 2025-01-11 08:34 | XMS_ITS | Encounter Summary ---
Author Organization [employer] Address [address] [facility] [address] [place] [address] Care Team Providers Care Durability Technician Name Role Phone Rajat Leonard MD Primary Care Provider [phone] Reason for Visit * Reason Comments extended office visit Encounter Details Date Type Department Care Team ([facility] st Contact Info) Description 01/10/2025 1:15 PM EDT Office Visit [facility]EDS [address] [place], [place] [phone] Rajat Leonard MD [address] [place] [address] Type 2 diabetes mellitus without complication, without long-term current use of insulin ([facility]) (Primary Dx); Essential hypertension; Pure hypercholesterolemia; Dietary counseling; Exercise counseling; Class 1 obesity due to excess calories with serious comorbidity and body mass index (BMI) of 32.0 to 32.9 in adult Social History Tobacco Use Types Packs/Day Years Used Date Smoking Tobacco: Never Smokeless Tobacco: Never Alcohol Answer Date Recorded How often do you have a drink containing alcohol ? 1 11/05/2024 How many drinks containing a lcohol do you have on a typical day when you are drinking? 0 11/05/2024 How often do you have six or more drinks on one occasion? 0 11/05/2024 Depression Answer Date Recorded Patient Health Questionnaire-9 Score 3 11/05/2024 Patient Health Questionnaire-9 Score 3 11/05/2024 Last PHQ-9: Questionnaire Data Not on file 0 11/05/2024 Housing Stability Answer Date Recorded What is your housing situation today? I have janet mayfield 11/05/[address] you li ve. Do you have problems with any of the following? None of the above 11/05/2024 Food Insecurity Answer Date Recorded Within the past 12 months, y ou worried that your food would run out before you got money to buy more: Sometimes True 2024 Within the past 12 months,th e food you bought just didn't last and you didn't have enough money to get more: Sometimes True 11/05/2024 Transportation Answer Date Recorded In the past 12 months, has l ack of transportation kept you from medical appts, meetings, work or from getting things needed for daily living? No 11/05/2024 Utilities Answer Date Recorded In the past 12 months, has t he electric, gas, oil or water company threatened to shut off services in your home? No 11/05/2024 Depression Answer Date Recorded Patient Health Questionnaire-2 Score 0 11/05/2024 Internet Access Answer Date Recorded Internet Access Q1 Yes 11/05/2024 Internet Access Q2 Not on file 11/05/2024 Sex and Gender Information Value Date Recorded Sex Assigned at Male 06/28/2022 10:22 AM EDT Legal Sex Male 10:22 AM EDT Gender Identity Male 06/28/2022 10:22 AM EDT Sexual Orientation Choose not to disclose 2021 10:22 AM EDT documented as of this encounter Last Filed Vital Signs Vital Sign Reading Time Taken Comments Blood Pressure 130/80 01/10/2025 1:41 PM EDT Pulse 79 01/10/2025 1:41 PM EDT Temperature 36.6 ??C (97.9 ??F) 01/10/2025 1:20 PM ED T Respiratory Rate 20 01/10/2025 1:20 PM EDT Oxygen Saturation 97% 01/10/2025 1:20 PM EDT Inhaled Oxygen Concentration - - Weight 86.6 kg (191 lb) 01/10/2025 1:20 PM EDT Height 162.6 cm (5' 4 ) 01/10/2025 1:20 PM EDT Body Mass Index 32.79 01/10/2025 1:20 PM EDT documented in this encounter Progress Notes * Rajat Leonard MD - 01/10/2025 1:15 PM EDT SUBJECTIVE Edis Wright is a 59 y.o. male who presents for extended office visit. HPI Patient is doing overall well. Only complaining of mild discomfort of the right big toe. Denies any acute events since the last office visit. Mr. Edis Wright continues to drink 4 or more drinks a day Problem List[1] Allergies[2] Medications Ordered Prior to Encounter[3] Review of Systems Constitutional: Negative for activity change, appetite change, chills and diaphoresis. HENT: Negative for dental problem, drooling and ear discharge. Eyes: Negative for pain and itching. Respiratory: Negative for cough, choking and chest tightness. Cardiovascular: Negative for palpitations and leg swelling. Gastrointestinal: Negative for abdominal pain, anal bleeding and blood in stool. Endocrine: Negative for cold intolerance and heat intolerance. Genitourinary: Negative for flank pain, frequency and genital sores. Musculoskeletal: Negative for back pain. Neurological: Negative for light-headedness, numbness and headaches. Psychiatric/Behavioral: Negative for agitation, confusion and decreased concentration. OBJECTIVE Vitals: 01/10/25 1320 BP: (!) 145/89 BP Location: Left arm Patient Position: Sitting BP Cuff Size: Adult Pulse: 77 Resp: 20 Temp: 97.9 ??F (36.6 ??C) TempSrc: Oral SpO2: 97% Weight: 191 lb (86.6 kg) Height: 5' 4 (1.626 m) Physical Exam Constitutional: General: He is not in acute distress. Appearance: Normal appearance. He is obese. He is not ill-appearing, toxic- appearing or diaphoretic. HENT: Head: Normocephalic. Right Ear: Tympanic membrane normal. Left Ear: Tympanic membrane normal. Nose: Nose normal. Eyes: General: No scleral icterus. Right eye: No discharge. Left eye: No discharge. Pupils: Pupils are equal, round, and reactive to light. Cardiovascular: Rate and Rhythm: Normal rate and regular rhythm. Heart sounds: No murmur heard. No friction rub. No gallop. Pulmonary: Effort: Pulmonary effort is normal. No respiratory distress. Breath sounds: Normal breath sounds. No stridor. No wheezing, rhonchi or rales. Chest: Chest wall: No tenderness. Abdominal: General: Abdomen is flat. There is no distension. Palpations: Abdomen is soft. There is no mass. Tenderness: There is no abdominal tenderness. There is no right CVA tenderness, guarding or rebound. Hernia: No hernia is present. Musculoskeletal: General: Normal range of motion. Cervical back: Normal range of motion. Skin: General: Skin is warm. Neurological: General: No focal deficit present. Mental Status: He is alert. Psychiatric: Mood and Affect: Mood normal. Behavior: Behavior normal. Assessment/Plan Assessment/Plan Diagnoses and all orders for this visit: Type 2 diabetes mellitus without complication, without long-term current use of insulin ([facility]) Comments: Stable No change Low-carb diet. Orders: - POCT Glucose - Albumin, Random Urine W/Creatinine; Future Essential hypertension Comments: Blood pressure is at goal No change in medication DASH diet. Pure hypercholesterolemia Comments: Repeat lipid panel History of hypertriglyceridemia Low-carb diet recommended. Complete cessation of alcohol recommended. Orders: - Lipid Panel, Standard; Future Dietary counseling Exercise counseling Class 1 obesity due to excess calories with serious comorbidity and body mass index (BMI) of 32.0 to 32.9 in adult Dietary Recommendations: Fruits, vegetables, whole grains, protein foods, and fat-free or low-fat dairy products are healthychoices. Eat different types of protein foods in your diet. This can include seafood, lean meats, poultry, beans, peas, lentils, nuts, seeds, soy products, and eggs. Limit foods and beverages higher in added sugars, saturated fat, and sodium. Exercise Recommendations: At least 150 minutes of moderate-intensity physical activity per week, or an equivalent combinationof moderate- and vigorous-intensity activity [1] Patient Active Problem List Diagnosis Chronic hepatitis C (CMS/HCC) Contact dermatitis Diabetes mellitus (CMS/HCC) Essential hypertension Pure hypercholesterolemia [2] No Known Allergies [3] Current Outpatient Medications on File Prior to Visit Medication Sig Dispense Refill amLODIPine (Norvasc) 10 MG tablet TAKE ONE TABLET DAILY AT NOON 90 tablet 1 Aspirin Adult Low Strength 81 MG EC tablet TAKE ONE TABLET DAILY AT NOON 90 tablet 1 B-Complex tablet Take 1 tablet by mouth 1 (one) time each day. B-Complex, Folic Acid, tablet TAKE ONE TABLET DAILY AT NOON 90 tablet 1 Blood Pressure kit To check the BP 3 times a week. 1 kit 0 cetirizine (ZyrTEC) 10 MG tablet TAKE ONE TABLET BY MOUTH EVERY MORNING 30 tablet 0 cetirizine (ZyrTEC) 10 MG tablet Take 1 tablet (10 mg) by mouth in the morning. 30 tablet 11 Diclofenac Sodium 1 % gel To apply to the affected area 4 times a day 100 g 1 docusate sodium (Colace) 100 MG capsule take 1 capsule by oral route every day at bedtime as neededfor constipation Easy Touch Lancets 33G/Twist misc TEST BLOOD SUGAR TWICE DAILY DIRECTED 100 each 11 Farxiga 5 MG TAKE ONE TABLET EVERY MORNING 30 tablet 5 fenofibrate (Triglide) 160 MG tablet Take 1 tablet (160 mg) by mouth Once per day. 30 tablet 11 fluticasone (Flonase Sensimist) 27.5 MCG/SPRAY nasal spray Administer 1-2 sprays into each nostril Once per day. 10 g 2 FREESTYLE LITE test strip TEST BLOOD SUGAR TWICE DAILY 100 strip 11 glimepiride (Amaryl) 2 MG tablet TAKE ONE TABLET EVERY MORNING 90 tablet 1 hydroCHLOROthiazide (Microzide) 12.5 MG capsule TAKE ONE CAPSULE DAILY AT NOON 90 capsule 1 hydrocortisone 2.5 % cream Apply topically 2 times daily. 20 g 0 ketoconazole (NIZOral) 2 % shampoo Apply topically 2 (two) times a week. 120 mL 1 ketotifen (Zaditor) 0.025 % ophthalmic solution PLACE ONE DROP IN THE AFFECTED EYE(S) TWICE DAILY Ketotifen Fumarate (Zaditor) 0.035 % solution Administer 1 drop into affected eye(s) 2 times daily.10 mL 0 losartan (Cozaar) 50 MG tablet TAKE ONE TABLET DAILY AT NOON 90 tablet 1 metFORMIN (Glucophage) 1000 MG tablet TAKE ONE TABLET IN THE MORNING AND EVENING WITH MEALS 180 tablet 1 rosuvastatin (Crestor) 40 MG tablet TAKE ONE TABLET EVERY EVENING 90 tablet 1 tiZANidine (Zanaflex) 4 MG capsule Take 1 capsule (4 mg) by mouth 3 times daily. 90 capsule 11 tiZANidine (Zanaflex) 4 MG tablet Take 1 tablet (4 mg) by mouth every 8 (eight) hours if needed formuscle spasms. 1 tab 2 times a day 30 tablet 1 Vitamins-Lipotropics (B Complex Formula 1, Lipotrop,) tablet TAKE ONE TABLET DAILY AT NOON 90 tablet 1 No current facility-administered medications on file prior to visit. documented in this encounter Plan of Treatment Upcoming Encounters Date Type Department Care Team (Late st Contact Info) Description 01/17/2025 9:30 AM EDT Nutrition [facility] DI[facility]/NTRN [address] [place], [place] [phone] Josy Morales, RD [address] [place], [place] [phone] 02/06/2025 9:45 AM EDT Office Visit [facility]ED[facility] [address] [place], [place] [phone] Rajat Leonard MD [address] [place], [place] [phone] Scheduled Orders Name Type Priority Associated Diagnoses Orde r Schedule Lipid Panel, Standard Lab Routine Pure hypercholesterolemia Expected: 01/10/2025 (Approximate), Expires: 01/10/2026 Albumin, Random Urine W/Creatinine Lab Routine Type 2 diabetes mellitus without complication, without long-term current use of insulin (CMS/HCC) Expected: 01/10/2025 (Approximate), Expires: 01/10/2026 documented as of this encounter Procedures Procedure Name Priority Date/Time Associated Diagnosis Comments POCT GLUCOSE Routine 01/10/2025 1:49 PM EDT Type 2 diabetes mellitus without complication, without long-term current use of insulin ([facility]) documented in this encounter Results * POCT Glucose (01/10/2025 1:49 PM EDT) [facility] Glucose Blood, POC 124 60 - 200 mg/dL QC Media Lot # [id number] Lot# Expiration Date ,025 Comment:random Blood Capillary blood specimen / Unknown 01/10/2025 1:49 PM EDT us Rajat Leonard MD POINT OF CARE TEST ENTER/ED IT ORDERABLES Final Result documented in this encounter Visit Diagnoses Diagnosis Type 2 diabetes mellitus without complication, without long-term current use of insulin (CMS/HCC)- Primary Essential hypertension Unspecified essential hypertension Pure hypercholesterolemia Dietary counseling Dietary surveillance and counseling Exercise counseling Class 1 obesity due to excess calories with serious comorbidity and body mass index (BMI) of 32.0 to 32.9 in adult documented in this encounter Additional Health Concerns Assessment Noted Time PHQ-9 Depression Total Score: 3 11/06/19 25 12:17 PM EDT documented as of this encounter Care Teams Durability Technician Relationship Specialty Start Date End Date Rajat Leonard MD [address] [place] [id number] PCP - General Internal Medicine 01/04/13 documented as of this encounter
--- OUTSIDE RECORDS SUMMARY | 2025-01-11 08:34 | XMS_ITS | Encounter Summary ---
Author Organization [employer] Address [address] [place] [address] [address] [place] [address] Care Team Providers Care Engineering Designer Name Role Phone Rajat Leonard MD Primary Care Provider [phone] Reason for Referral * Imaging (Routine) - Closed Specialty Diagnoses / Procedures Referred By Santana vergara Referred To Contact Radiology Diagnoses Chronic hepatitis C without hepatic coma (CMS/HCC) Procedures US Abdomen Complete Rajat Leonard MD [address] [place] [address] Phone: tel: fax: [address] Phone: tel: fax: Referral ID Status Reason Start Date Expiration Date Visits Re quested Visits Authorized [id number] Closed 05/25/2024 05/25/2025 1 1 * Imaging (Routine) - Closed Specialty Diagnoses / Procedures Referred By Santana vergara Referred To Contact Radiology Diagnoses Chronic hepatitis C without hepatic coma (CMS/HCC) Procedures US Abdomen Complete Rajat Leonard MD [address] [place] [address] Phone: tel: fax: [address] Phone: tel: fax: Referral ID Status Reason Start Date Expiration Date Visits Re quested Visits Authorized [id number] Closed 05/21/2024 05/21/2025 1 1 Encounter Details Date Type Department Care Team (Late st Contact Info) Description 05/21/2024 Orders Only [facility] MED & PEDS [address] [place] [address] Rajat Leonard MD [address] [place] [address] Chronic hepatitis C without hepatic coma (CMS/HCC) (Primary Dx) Social History Tobacco Use Types Packs/Day Years [...] Info) Description 01/17/2025 9:30 AM EDT Nutrition [facility] DI[facility]/NTRN [address] [place] [address] Josy Morales, RD [address] [place] [address] 02/06/2025 9:45 AM EDT Office Visit [facility] PED[facility] [address] [place] [address] Rajat Leonard MD [address] [place] [address] Scheduled Orders Name Type Priority Associated Diagnoses Orde r Schedule US Abdomen Complete Imaging Routine Chronic hepatitis C without hepatic coma (CMS/HCC) Expected: 05/21/2024, Expires: 05/21/2025 Hepatitis C Antibody with Reflex to HCV, RNA, Quantitative, Real-Time PCR Lab Routine Chronic hepatitis C without hepatic coma (CMS/HCC) Expected: 05/21/2024, Expires: 05/21/2025 Hepatitis C Viral RNA, Quantitative, Real-Time PCR Lab Routine Chronic hepatitis C without hepatic coma (CMS/HCC) Expected: 05/25/2024 (Approximate), Expires: 05/25/2025 US Abdomen Complete Imaging Routine Chronic hepatitis C without hepatic coma (CMS/HCC) Expected: 05/25/2024, Expires: 05/25/2025 documented as of this encounter Visit Diagnoses Diagnosis Chronic hepatitis C without hepatic coma (CMS/HCC)- Primary documented in this encounter Additional Health Concerns Assessment Noted Time PHQ-9 Depression Total Score: 16 023 1:25 PM EST documented as of this encounter Care Teams Engineering Designer Relationship Specialty Start Date End Date Rajat Leonard MD [address] [place] [address] PCP - General Internal Medicine 01/04/13 documented as of this encounter
--- OUTSIDE RECORDS SUMMARY | 2025-01-11 08:34 | XMS_ITS | Encounter Summary ---
Author Organization [employer] Address [address] [facility] [address] [place] [address] Care Team Providers Care Wall Cleaner Name Role Phone Rajat Leonard MD Primary Care Provider [phone] Encounter Details Date Type Department Care Team (Latest Contact Info) Description 01/10/2025 Travel Social History Tobacco Use Types Packs/Day Years [...] your housing situation today? I have janet tran 11/05/[address] you li [...] 01/17/2025 9:30 AM EDT Nutrition [facility] DIABETES/NTRN [address] [place] [address] Josy Morales, RD [address] [place] [address] 02/06/2025 9:45 AM EDT Office Visit [facility] MED & PEDS [address] [place] [address] Rajat Leonard MD [address] [place] [address] documented as of this encounter Visit Diagnoses Not on filedocumented in this encounter Additional Health Concerns Assessment Noted Time PHQ-9 Depression Total Score: 3 11/06/19 25 12:17 PM EDT documented as of this encounter Care Teams Wall Cleaner Relationship Specialty Start Date End Date Rajat Leonard MD [address] [place] [address] PCP - General Internal Medicine 01/04/13 documented as of this encounter
--- OUTSIDE RECORDS SUMMARY | 2025-01-11 08:34 | XMS_ITS | Encounter Summary ---
Author Organization [employer] Address [address] [facility] 7t [place] [address] Care Team Providers Care Dance Historian Name Role Phone Rajat Leonard MD Primary Care Provider [phone] Reason for Visit * Reason Onset Date Comments Referral 11/06/2024 Encounter Details Date Type Department Care Team ([facility] st Contact Info) Description 11/06/[address] [facility] MED & PEDS [address] [place], [place] [phone] Rajat Leonard MD [address] [place] [address] Referral Social History Tobacco Use Types Packs/Day Years [...] AM EDT documented as of this encounter Miscellaneous Notes * Telephone Encounter - Arielle Lake RN - 11/06/2024 3:03 PM EDT TC placed to Karmen Darnell, Photo Optics Technician for [facility]. [place] states the pt was seen yesterday and was supposed to speak to the provider about getting a referral for a sleepstudy. Pt was reminded multiple times by Karmen, but pt is forgetful and forgot to speak to PCP about referral. [place] reports that the pt informed her he had a sleep study 2-3 years ago, but would need a new referral for a new sleep study in order to obtain the CPAP that he needs. Pt also requesting a referral for biofuels plant operations engineer as he was told he needs to lose weight and because of his diabetes. Message forwarded to PCP to review and advise. * Telephone Encounter - Melissa Brown - 11/06/2024 1:50 PM EDT Tc from Karmen Darnell, Photo Optics Technician for [facility] requesting a referral for a sleep study and also would like a nutritions referral. Caller states was supposed to be discussed on last visit. Please call to clarify. documented in this encounter Plan of Treatment Upcoming Encounters Date Type Department Care Team (Late st Contact Info) Description 01/17/2025 9:30 AM EDT Nutrition [facility] DIABETES/NTRN [address] [place], [place] [phone] Josy Morales, RD [address] [place], [place] [phone] 02/06/2025 9:45 AM EDT Office Visit [facility] MED & PEDS [address] [place], [place] [phone] Rajat Leonard MD [address] [place] [address] documented as of this encounter Visit Diagnoses Not on filedocumented in this encounter Additional Health Concerns Assessment Noted Time PHQ-9 Depression Total Score: 3 11/06/19 25 12:17 PM EDT documented as of this encounter Care Teams Dance Historian Relationship Specialty Start Date End Date Rajat Leonard MD [address] [place] [address] PCP - General Internal Medicine 01/04/13 documented as of this encounter
--- OUTSIDE RECORDS SUMMARY | 2025-01-11 08:34 | XMS_ITS | Encounter Summary ---
Author Organization [employer] Address [address] [facility] 7t [place] [address] Care Team Providers Care Emt Intermediate Name Role Phone Rajat Leonard MD Primary Care Provider [phone] Reason for Visit * Reason Comments Med Refill Encounter Details Date Type Department Care Team (Late st Contact Info) Description 03/23/2023 Refill [facility] MED & PEDS [address] [place], [place] [phone] Rajat Leonard MD [address] [place], [place] [phone] Essential (primary) hypertension; Type 2 diabetes mellitus without complication, without long-term current use of insulin ([facility]); Essential hypertension Social History Tobacco Use Types Packs/Day Years Used Date Smoking Tobacco: Never Smokeless Tobacco: Never Depression Answer Date Recorded Patient Health Questionnaire-9 Score 2 08/24/2022 Depression Answer Date Recorded Patient Health Questionnaire-2 [...] Info) Description 01/17/2025 9:30 AM EDT Nutrition [facility] DIABETES/NTRN [address] [place], [place] [phone] Josy Morales RD [address] [place], [place] [phone] 02/06/2025 9:45 AM EDT Office Visit [facility] MED & PEDS [address] [place] [address] Rajat Leonard MD [address] [place] [address] documented as of this encounter Visit Diagnoses Diagnosis Essential (primary) hypertension Unspecified essential hypertension Type 2 diabetes mellitus without complication, without long-term current use of insulin ([facility]) Essential hypertension Unspecified essential hypertension documented in this encounter Additional Health Concerns Assessment Noted Time PHQ-9 Depression Total Score: 2 08/24/20 22 3:35 PM EST documented as of this encounter Care Teams Emt Intermediate Relationship Specialty Start Date End Date Rajat Leonard MD [address] [place] [address] PCP - General Internal Medicine 01/04/13 documented as of this encounter
--- OUTSIDE RECORDS SUMMARY | 2025-01-11 08:34 | XMS_ITS | Encounter Summary ---
Author Organization [employer] [facility] Address [address] [place] [address] [place] [address] Care Team Providers Care Manager Wellness Name Role Phone Rajat Leonard MD Primary Care Provider [phone] Reason for Referral * Consultation (Routine) - Authorized Specialty Diagnoses / Procedures Referred By Santana vergara Referred To Contact Nutrition Diagnoses Type 2 diabetes mellitus without complication, without long-term current use of insulin ([facility] Rajat Leonard MD [address] [place] [address] Phone: tel: fax: Referral ID Status Reason Start Date Expiration Date Visits Requested Visits Authorized [id number] Authorized Consult and Treat 11/07/2024 11/07/2025 1 1 * Consultation (Routine) - Authorized Specialty Diagnoses / Procedures Referred By Santana vergara Referred To Contact Internal Medicine Diagnoses Loud snoring Rajat Leonard MD [address] [place] [address] Phone: tel: fax: Sleep Medicine Service [facility] [address], [address] [place] [address] Phone: tel: fax: Referral ID Status Reason Start Date Expiration Date Visits Requested Visits Authorized [id number] Authorized Specialty Services Required 11/07/2024 11/07/2025 1 1 Encounter Details Date Type Department Care Team (Late st Contact Info) Description 11/07/2024 Orders Only [facility] MED[facility]INE [address] [place] [address] Rajat Leonard MD [address] [place] [address] Loud snoring (Primary Dx); Type 2 diabetes mellitus without complication, without long-term current use of insulin (CMS/HCC) Social History Tobacco Use Types Packs/Day Years [...] Info) Description 01/17/2025 9:30 AM EDT Nutrition [facility] DIABETES/NTRN [address] [place], [place] [phone] Josy Morales, RD [address] [place] [address] 02/06/2025 9:45 AM EDT Office Visit [facility] MED & PEDS [address] [place], [place] [phone] Rajat Leonard MD [address] [place] [address] Scheduled Referrals Name Type Priority Associated Diagnoses Orde r Schedule Referral to Sleep Medicine Outpatient Referral Routine Loud snoring Expected: 11/07/2024 (Approximate), Expires: 11/07/2025 Referral to Nutrition Therapy Outpatient Referral Routine Type 2 diabetes mellitus without complication, without long-term current use of insulin (CMS/HCC) Expected: 11/07/2024 (Approximate), Expires: 11/07/2025 documented as of this encounter Visit Diagnoses Diagnosis Loud snoring- Primary Type 2 diabetes mellitus without complication, without long-term current use of insulin (CMS/HCC) documented in this encounter Additional Health Concerns Assessment Noted Time PHQ-9 Depression Total Score: 3 11/06/19 25 12:17 PM EDT documented as of this encounter Care Teams Manager Wellness Relationship Specialty Start Date End Date Rajat Leonard MD [address] [place] [address] PCP - General Internal Medicine 01/04/13 documented as of this encounter
--- OUTSIDE RECORDS SUMMARY | 2025-01-11 08:34 | XMS_ITS | Clinical Summary ---
Author Organization [employer] Address [address] [place] [address] Care Team Providers Care Electrogalvanizing Machine Operator Name Role Phone Rajat Leonard MD Primary Care Provider Allergies No known active allergies Medications B-Complex tablet Take 1 tablet by mouth 1 (one) time each day. 01/14/20 22 Active docusate sodium (Colace) 100 MG capsule take 1 capsule by oral route every day at bedtime as needed for constipation 10/01/19 22 Active ketotifen (Zaditor) 0.025 % ophthalmic solution PLACE ONE DROP IN THE AFFECTED EYE(S) TWICE DAILY 04/19/20 22 Active tiZANidine (Zanaflex) 4 MG tabletIndications: Chronic left-sided low back pain with left-sided sciatica Take 1 tablet (4 mg) by mouth every 8 (eight) hours if needed for muscle spasms. 1 tab 2 times a day 30 tablet 1 10/28/19 23 Active cetirizine (ZyrTEC) 10 MG tabletIndications: Type 2 diabetes mellitus without complications (CMS/HCC) TAKE ONE TABLET BY MOUTH EVERY MORNING 30 tablet 11/30/19 23 Active tiZANidine (Zanaflex) 4 MG capsuleIndications :Chronic left-sided low back pain with left-sided sciatica Take 1 capsule (4 mg) by mouth 3 times daily. 90 capsule 11 01/11/20 23 Active Blood Pressure kitIndications:Ess ential hypertension To check the BP 3 times a week. 1 kit 09/05/19 24 Active Diclofenac Sodium 1 % gelIndications:Mul tiple joint pain To apply to the affected area 4 times a day 100 g 1 09/05/19 24 Active FREESTYLE LITE test stripIndications:T ype 2 diabetes mellitus without complications (CMS/HCC) TEST BLOOD SUGAR TWICE DAILY 100 strip 11 01/26/20 24 Active B-Complex, Folic Acid, tabletIndications: Type 2 diabetes mellitus without complication, without long-term current use of insulin (CMS/HCC) TAKE ONE TABLET DAILY AT NOON 90 tablet 1 03/27/20 24 Active ketoconazole (NIZOral) 2 % shampooIndications :Seborrheic dermatitis Apply topically 2 (two) times a week. 120 mL 05/03/20 24 Active fenofibrate (Triglide) 160 MG tabletIndications: Chronic hepatitis C without hepatic coma (CMS/HCC) Take 1 tablet (160 mg) by mouth Once per day. 30 tablet 05/21/20 24 025 Active Aspirin Adult Low Strength 81 MG EC tablet TAKE ONE TABLET DAILY AT NOON 90 tablet 1 07/18/20 24 Active rosuvastatin (Crestor) 40 MG tablet TAKE ONE TABLET EVERY EVENING 90 tablet 1 07/18/20 24 Active Farxiga 5 MG TAKE ONE TABLET EVERY MORNING 30 tablet 5 10/30/19 25 Active glimepiride (Amaryl) 2 MG tablet TAKE ONE TABLET EVERY MORNING 90 tablet 1 11/02/19 25 Active hydroCHLOROthiazid e (Microzide) 12.5 MG capsuleIndications :Essential hypertension TAKE ONE CAPSULE DAILY AT NOON 90 capsule 1 11/02/19 25 Active metFORMIN (Glucophage) 1000 MG tabletIndications: Type 2 diabetes mellitus without complication, without long-term current use of insulin (CMS/HCC) TAKE ONE TABLET IN THE MORNING AND EVENING WITH MEALS 180 tablet 1 11/02/19 25 Active amLODIPine (Norvasc) 10 MG tabletIndications: Essential (primary) hypertension TAKE ONE TABLET DAILY AT NOON 90 tablet 1 11/02/19 25 Active Vitamins-Lipotropi cs (B Complex Formula 1, Lipotrop,) tabletIndications: Type 2 diabetes mellitus without complications (CMS/HCC) TAKE ONE TABLET DAILY AT NOON 90 tablet 1 11/02/19 25 Active losartan (Cozaar) 50 MG tabletIndications: Essential hypertension TAKE ONE TABLET DAILY AT NOON 90 tablet 1 11/02/19 25 Active Ketotifen Fumarate (Zaditor) 0.035 % solutionIndication s:Allergic conjunctivitis of both eyes Administer 1 drop into affected eye(s) 2 times daily. 10 mL 11/06/19 Active hydrocortisone 2.5 % creamIndications:A llergic contact dermatitis due to other agents Apply topically 2 times daily. 20 g 11/06/19 25 Active cetirizine (ZyrTEC) 10 MG tabletIndications: Seasonal allergies Take 1 tablet (10 mg) by mouth in the morning. 30 tablet 11/06/19 Active fluticasone (Flonase Sensimist) 27.5 MCG/SPRAY nasal sprayIndications:S easonal allergies Administer 1-2 sprays into each nostril Once per day. 10 g 2 11/06/19 25 026 Active Easy Touch Lancets 33G/Twist miscIndications:Ty pe 2 diabetes mellitus without complications (CMS/HCC) TEST BLOOD SUGAR TWICE DAILY DIRECTED 100 each 11/14/19 Active Active Problems Problem Noted Date Diagnosed Date Chronic hepatitis C 07/08/2016 Diabetes mellitus 09/13/2012 Pure hypercholesterolemia 10/11/2011 Essential hypertension 09/16/2011 Contact dermatitis 09/08/2011 Encounters Date Type Department Care Team Description 01/10/2025 1:15 PM EDT Office Visit [facility] MED & PEDS [address], [place] [phone] Rajat Leonard MD Type 2 diabetes mellitus without complication, without long-term current use of insulin (CMS/HCC) (Primary Dx); Essential hypertension; Pure hypercholesterolemia; Dietary counseling; Exercise counseling; Class 1 obesity due to excess calories with serious comorbidity and body mass index (BMI) of 32.0 to 32.9 in adult 01/10/2025 Travel 01/02/2025 Patient Outreach [facility] MEDICINE [address] [place] [phone] Rajat Leonard MD Pre-visit Planning (SDOH screening completed on 11/05/24) 11/13/2024 Refill [facility] MEDICINE [address] [place], [place] [phone] Rajat Leonard MD Type 2 diabetes mellitus without complications (CMS/HCC) 11/07/2024 Orders Only [facility] MEDICINE [address] [place] [address] Rajat Leonard MD Loud snoring (Primary Dx); Type 2 diabetes mellitus without complication, without long-term current use of insulin (CMS/HCC) 11/06/2024 Telephone [facility] MED [facility] PED[facility] [address] [place] [address] Rajat Leonard MD Referral 11/05/2024 11:30 AM EDT Office Visit [facility] MED [facility] PED[facility] [address] [place] [address] Rajat Leonard MD Allergic contact dermatitis due to other agents (Primary Dx); Allergic conjunctivitis of both eyes; Type 2 diabetes mellitus without complication, without long-term current use of insulin (CMS/HCC); Unintentional weight loss; Encounter for immunization; Seasonal allergies 11/05/2024 Travel 11/01/2024 Refill [facility]ED[facility] [address] [place] [address] Rajat Leonard MD Essential hypertension; Type 2 diabetes mellitus without complication, without long-term current use of insulin (CMS/HCC); Essential (primary) hypertension; Type 2 diabetes mellitus without complications (CMS/HCC) 10/29/2024 Refill [facility] [address] [place] [address] Rajat Leonard MD from Last 3 Months Immunizations Immunization Administration Dates Next Due Hep A, Adult 11/05/2024 Hep B, adult 11/05/2024 Influenza injectable quadriv alent IIV4 with preservative 05/24/2017 Influenza, IIV3, injectable 07/01/2021 Pneumococcal Conjugate PCV 20 11/05/2024 Tdap 01/16/2016 Zoster, Recombinant 05/13/2020,10/11/2019 Family History Medical History Relation Name Comments Throat cancer Father smoker Father Diabetes Mother Hypertension Mother Breast cancer Sister Relation Name Status Comments Father Mother Sister Social History Tobacco Use Types Packs/Day Years Used Date Smoking Tobacco: Never Smokeless Tobacco: Never Tobacco Cessation:Counseling Given: Not Answered Alcohol Answer Date Recorded How often do [...] not to disclose 2021 10:22 AM EDT Last Filed Vital Signs Vital Sign Reading [...] Mass Index 32.79 01/10/2025 1:20 PM EDT Plan of Treatment Upcoming Encounters Date Type Department Care Team (Late st Contact Info) Description 01/17/2025 9:30 AM EDT Nutrition [facility] DI[facility]/NTRN [address] [place], [place] [phone] Josy Morales, KAVON [address] [place] [address] 02/06/2025 9:45 AM EDT Office Visit [facility] MED [facility] PEDS [address] [place], [place] [phone] Rajat Leonard MD [address] [place], [place] [phone] Health Maintenance Due Date Last Done Comments CT Colonography 1964 FIT DNA/Cologuard 1964 FIT 1964 FOBT 1964 HIV Screening 1965 Sigmoidoscopy 1964 Diabetes: Urine Protein Screening 04/20/2023 04/20/2022 COVID-19 Vaccine ( season) 2024 05/05/2021, 04/14/2021 Influenza Vaccine (#1) 2024 07/01/2021, 2016 RSV Patients and Patients Aged 60 years or older (1 - Risk 60-74 years 1-dose series) 2024 Hepatitis B Vaccines (2 of 3 - Risk 3-dose series) 12/03/2024 11/05/2024 Diabetes: Hemoglobin A1C 05/08/2025 025, 05/03/2024, 08/04/2023, Additional history exists Hepatitis A Vaccines (2 of 2 - Risk 2-dose series) 05/08/2025 11/05/2024 Lipid Panel 05/18/2025 05/18/2024, 04/20/2022 Eye Exam 07/30/2025 07/30/2024 Alcohol/Substance Use Screening 11/05/2025 11/05/2024 Depression Screening 11/05/2025 11/05/2024, 11/06/19 SDOH Screening 11/05/2025 11/05/2024 Diabetes: Foot Exam 01/10/2026 01/10/2025 Tobacco Screening 01/10/2026 01/10/2025 DTaP/Tdap/Td Vaccines (2 - Td or Tdap) 01/15/2026 01/16/2016 Colonoscopy 11/25/2032 Colorectal Cancer Screening 11/25/2032 Zoster Vaccines Completed 05/13/2020, 10/11/2019 Pneumococcal Vaccine: 50+ Years Completed 11/05/2024 HIB Vaccines Aged Out No longer eligi ble based on patient's age to complete this topic HPV Vaccines Aged Out No longer eligi ble based on patient's age to complete this topic IPV Vaccines Aged Out No longer eligi ble based on patient's age to complete this topic Meningococcal B Vaccine Aged Out No l onger eligible based on patient's age to complete this topic Meningococcal Vaccine Aged Out No yudelka narcisa eligible based on patient's age to complete this topic RSV under 20 months Aged Out No longe r eligible based on patient's age to complete this topic Rotavirus Vaccines Aged Out No longer eligible based on patient's age to complete this topic Procedures Procedure Name Priority Date/Time Associated Diagnosis Comments POCT GLUCOSE Routine 01/10/2025 1:49 PM EDT Type 2 diabetes mellitus without complication, without long-term current use of insulin (CMS/[facility]) POCT GLUCOSE Routine 11/05/2024 11:56 AM EDT Type 2 diabetes mellitus without complication, without long-term current use of insulin (CMS/HCC) POCT GLYCATED HEMOGLOBIN, TOTAL Routine 11/05/2024 11:55 AM EDT Type 2 diabetes mellitus without complication, without long-term current use of insulin (CMS/[facility]) HM DIABETES EYE EXAM Routine 07/30/2024 3:18 PM EST LIPID PANEL, STANDARD Routine 05/18/2024 9:13 AM EDT Type 2 diabetes mellitus without complication, without long-term current use of insulin (CMS/HCC) Essential hypertension ALBUMIN, RANDOM URINE W/CREATININE Routine 04/20/2022 8:32 AM EDT from Last 3 Months or Most Recently Relevant to Health Maintenance Results * POCT Glucose (01/10/2025 1:49 PM EDT) Only the most recent of2 resultswithin the time period is included. Glucose Blood, POC 124 60 - 200 mg/dL [employer] Media Lot # [id number] Lot# Expiration Date ,986 Comment:random Blood Capillary blood specimen / Unknown 01/10/2025 1:49 PM EDT Rajat Leonard MD POINT OF CARE TEST ENTER/ED IT ORDERABLES Final Result * (ABNORMAL) POCT HGB A1C (11/05/2024 11:55 AM EDT) Hemoglobin A1C 6.4(A) 4.0 - 6.0 % QC Media Lot # [id number] Lot# Expiration Date ,026 Blood 11/05/2024 11:5 5 AM EDT Rajat Leonard MD POINT OF CARE TEST ENTER/ED IT ORDERABLES Final Result * Diabetes Eye Exam (07/30/2024 3:18 PM EST) Historical Provider HEALTH MAINTENANCE Final Result * (ABNORMAL) Lipid Panel, Standard (05/18/2024 9:13 AM EDT) Triglycerides 435(H) <150 mg/dL [facility] Comment:Desirable Triglyceri de: less than 150 mg/dLBorderline High Triglyceride 150-199 mg/dLHigh Triglyceride: 200-499 mg/dLVery High Triglyceride: greater than or equal to 5OO mg/dL Cholesterol 122 <200 mg/dL [facility] Comment:Desirable Cholestero l: less than 200 mg/dLBorderline High Cholesterol: 200-239 mg/dLHigh Cholesterol: greater than 239 mg/dL LDL Cholesterol Calculated TNP <100 mg/dL [facility] Comment:Unable to calculate the LDL. The formula of Friedwald,Herring, and Cory is only valid if the triglycerides areless than 400 mg/dl. HDL Cholesterol 36(L) >40 mg/dL [facility] Comment:Desirable HDL: great er than 40 mg/dL Note: This HDL assay may give artificially low results in patients with liver disease. Blood Venous blood specimen / Unknown 05/18/2024 9:13 AM EDT 05/18/2024 2:11 PM EDT us Rajat Leonard MD LAB BLOOD ORDERABLES Final Result Performing Organization Address [facility] Co de Phone Number [facility] [address] [place] [address] [phone] * ALBUMIN, RANDOM URINE W/CREATININE (04/20/2022 8:32 AM EDT) Microalbumin Urine 1.2 See Note: mg/dL [facility] Comment: Reference Range: ?? Reference Range Not established Microalb/Creat Ratio 8 <30 mcg/mg creat [facility] Comment: ?? The ADA defines abnormalities in albumin excretion as follows: ?? Albuminuria Category ?Result (mcg/mg creatinine) ?? Normal to Mildly increased ?? <30 Moderately increased ? 30-299 ?? Severely increased ? > OR = 300 ?? The ADA recommends that at least two of three specimens collected within a 3-6 month period be abnormal before considering a patient to be within a diagnostic category. Creatinine, Urine 157 20 - 320 mg/dL [facility] 04/20/2022 8:32 AM EDT us Rajat Leonard MD LAB URINE ORDERABLES Final Result Performing Organization Address City/[facility]/ZIP Co de Phone Number [facility] [address] [place] [address], from Last 3 Months or Most Recently Relevant to Health Maintenance Insurance [facility] Member Subscriber Plan / Payer (Ef fective 2025-Present) Name:Edis Wright Relation to Subscriber:Self Name:Edis Wright Payer ID:Not on file Group ID:[id number] Type:Not on file Address: [address] ONE CARE < 65 Care Teams Electrogalvanizing Machine Operator Relationship Specialty Start Date End Date Rajat Leonard MD [address] [place] [phone] PCP - General Internal Medicine 01/04/13
[2025-01-11 14:54] LABS: Alanine Aminotransferase 42 U/L (0-40); Albumin Level 4.2 g/dL (3.5-5.0); Alkaline Phosphatase 86 U/L (39-117); Anion Gap 14 (12-20); Aspartate Amino Transferase 40 U/L (5-37); Bilirubin Total 0.5 mg/dL (0.0-1.0); Blood Urea Nitrogen 20 mg/dL (9-16); Calcium 9.1 mg/dL (8.4-10.2); Carbon Dioxide 26 mmol/L (22-29); Chloride 103 mmol/L (96-108); Cholesterol 138 mg/dL (<200); Estimated Glomerular Filt Rate > 60; Glucose Random 119 mg/dL (60-115); HDL Cholesterol 44 mg/dL (>40); LDL Cholesterol Calculated 45 mg/dL (<100); Potassium 3.9 mmol/L (3.3-5.1); Sodium 139 mmol/L (135-145); Total Protein 7.7 g/dL (6.5-8.0); Triglycerides 249 mg/dL (<150)
[2025-01-11 15:08] LABS: PSA,Total (Free>4and<10) 1.29 ng/mL (0.00-4.00)
[2025-01-11 15:09] LABS: TSH reflex Free T4 0.63 uIU/mL (0.32-4.0)
[2025-01-11 15:26] LABS: Creatinine Urine 224.03 mg/dL; Microalbum/Creatinine Ratio Ur 7.1 ug/mg cr (<30)
[2025-01-12 08:05] LABS: HIV AB/AG Nonreactive (Nonreactive); HIV Num 1 0.05 S/CO (0.00-0.99); ~Hepatitis C Antibody Nonreactive (Nonreactive)
== END 2025-01-11 08:22 | disposition home or self-care (01) ==
LOC: HO.CHCLDS 08:21
PROVIDERS: Visit Provider Internal Medicine
DX: R63.4 Abnormal weight loss (principal); E78.00 Pure hypercholesterolemia, unspecified; E11.9 Type 2 diabetes mellitus without complications
CPT/HCPCS: 36415; 80053; 80061; 82043; 82570; 84153; 84443; 86803; 87389

== ENCOUNTER 2025-05-28 12:23 | Outpatient (REF) | payer MEDICAID, SELFPAY ==
--- OUTSIDE RECORDS SUMMARY | 2025-05-27 10:15 | XMS_ITS | Encounter Summary ---
Author Organization [employer] Address [address] [place] [address] [address] [place] [address] Care Team Providers Care Tech Ed/Woodshop Teacher Name Role Phone Rajat Leonard MD Primary Care Provider [phone]- [phone] Reason for Referral * Consultation (Routine) - Authorized Specialty Diagnoses / Procedures Referred By Santana vergara Referred To Contact Orthopaedic Surgery Diagnoses Left hip pain Rajat Leonard MD [address] [place] [address] Phone: tel: fax: [facility] [address] [place] [address] [place] [address] Phone: tel: fax: Referral ID Status Reason Start Date Expiration Date Visits Requested Visits Authorized [id number] Authorized Specialty Services Required 05/27/2025 05/27/2026 1 1 Encounter Details Date Type Department Care Team (Late st Contact Info) Description 05/27/2025 10:15 AM EDT Office Visit [facility] MED & PEDS [address] [place], [place] [phone] Rajat Leonard MD [address] [place] [address] Muscle strain (Primary Dx); Left hip pain Social History Tobacco Use Types Packs/Day Years [...] Sign Reading Time Taken Comments Blood Pressure 147/88 05/27/2025 10:07 AM EDT Pulse 70 05/27/2025 10:07 AM EDT Temperature 36.3 C (97.3 F) 05/27/2025 10:07 AM EDT Respiratory Rate 20 05/27/2025 10:07 AM EDT Oxygen Saturation 97% 05/27/2025 10:07 AM EDT Inhaled Oxygen Concentration - - Weight 84.4 kg (186 lb) 05/27/2025 10:07 AM EDT Height 162.6 cm (5' 4 ) 05/27/2025 10:07 AM EDT Body Mass Index 31.93 05/27/2025 10:07 AM EDT documented in this encounter Progress Notes * Rajat Leonard MD - 05/27/2025 10:15 AM EDT SUBJECTIVE Edis Wright is a 59 y.o. male who presents for No chief complaint on file.. HPI 1) history of right sided upper back pain for the last 3 months. Patient is otherwise right-handed.The back pain is intermittent. Exacerbated by lifting and movements of the right upper limb in general. Alleviated by the use of occasional ibuprofen. No associated fever, skin rash, or other constitutional symptoms. 2) left hip pain that started about a week ago. No fever. The pain is exacerbated by pressure. Patient states she cannot lay down on the left side. No redness or skin rash noted. Problem List[1] Allergies[2] Medications Ordered Prior to Encounter[3] Review of Systems Constitutional: Negative for appetite change, chills and diaphoresis. Respiratory: Negative for cough, choking and shortness of breath. Cardiovascular: Negative for leg swelling. Gastrointestinal: Negative for blood in stool and constipation. Musculoskeletal: Positive for back pain. Left hip pain. Skin: Negative for pallor and rash. OBJECTIVE Vitals: 05/27/25 1007 BP: (!) 147/88 BP Location: Left arm Patient Position: Sitting BP Cuff Size: Adult Pulse: 70 Resp: 20 Temp: 97.3 ??F (36.3 ??C) TempSrc: Oral SpO2: 97% Weight: 186 lb (84.4 kg) Height: 5' 4 (1.626 m) Physical Exam Constitutional: General: He is not in acute distress. Appearance: Normal appearance. He is not ill-appearing, toxic-appearing or diaphoretic. Pulmonary: Effort: Pulmonary effort is normal. Abdominal: Palpations: Abdomen is soft. Musculoskeletal: Comments: 1) new skin rash of the right upper back. Mild tenderness to palpation to the paraspinal muscles of the thoracic spine 2) tenderness to palpation of the greater trochanteric area. No rash. Normal range of motion of theleft hip. Neurological: Mental Status: He is alert. Assessment/Plan Assessment/Plan Diagnoses and all orders for this visit: Muscle strain Comments: Most likely Celebrex and tizanidine prescribed Moist heat to the affected area Follow-up in 4 to 6 weeks. Orders: - celecoxib (CeleBREX) 200 MG capsule; Take 1 capsule (200 mg) by mouth 2 times daily. - tiZANidine (Zanaflex) 4 MG tablet; Take 1 tablet (4 mg) by mouth every 8 (eight) hours if needed for muscle spasms. 1 tab 2 times a day Left hip pain Comments: Tenderness to palpation of the left trochanteric area Possible bursitis. Patient will be referred to Ortho Orders: - XR Hip 2 or 3 Views Left; Future - Referral to Orthopaedic Surgery; Future [1] Patient Active Problem List Diagnosis Contact dermatitis Diabetes mellitus (CMS/HCC) Essential hypertension Pure hypercholesterolemia [2] No Known Allergies [3] Current Outpatient Medications on File Prior to Visit Medication Sig Dispense Refill amLODIPine (Norvasc) 10 MG tablet TAKE ONE TABLET DAILY AT NOON 30 tablet 11 aspirin (Aspirin Adult Low Strength) 81 MG EC tablet Take 1 tablet (81 mg) by mouth Once per day. 90 tablet 1 B-Complex, Folic Acid, tablet TAKE ONE TABLET [...] TAKE ONE TABLET EVERY MORNING 30 tablet 11 fenofibrate (Triglide) 160 MG tablet TAKE ONE TABLET EVERY EVENING 30 tablet 11 fluticasone (Flonase Sensimist) 27.5 MCG/SPRAY nasal spray Administer 1-2 sprays into each nostril Once per day. 10 g 2 FREESTYLE LITE test strip TEST BLOOD SUGAR TWICE DAILY 100 strip 11 glimepiride (Amaryl) 2 MG tablet TAKE ONE TABLET EVERY MORNING 90 tablet 1 hydroCHLOROthiazide (Microzide) 12.5 MG capsule TAKE ONE CAPSULE DAILY AT NOON 30 capsule 11 hydrocortisone 2.5 % cream Apply topically 2 [...] tablet TAKE ONE TABLET DAILY AT NOON 30 tablet 11 metFORMIN (Glucophage) 1000 MG tablet TAKE ONE TABLET IN THE MORNING AND EVENING WITH MEALS 60 tablet 11 rosuvastatin (Crestor) 40 MG tablet Take 1 tablet (40 mg) by mouth Once per day. 90 tablet 1 tiZANidine (Zanaflex) 4 MG capsule Take 1 capsule (4 mg) by mouth 3 times daily. 90 capsule 11 tiZANidine (Zanaflex) 4 MG tablet Take 1 tablet (4 mg) by mouth every 8 (eight) hours if needed formuscle spasms. 1 tab 2 times a day 30 tablet 1 Vitamins-Lipotropics (B Complex Formula 1, Lipotrop,) tablet TAKE ONE TABLET DAILY AT NOON 30 tablet 11 No current facility-administered medications on file prior to visit. documented in this encounter Plan of Treatment Upcoming Encounters Date Type Department Care Team (Late st Contact Info) Description 07/08/2025 9:15 AM EST Office Visit [facility] MED & PEDS [address] [place] [address] Rajat Leonard MD [address] [place] [address] Scheduled Referrals Name Type Priority Associated Diagnoses Order Schedule Referral to Orthopaedic Surgery Outpatient Referral Routine Left hip pain Expected: 05/27/2025 (Approximate), Expires: 05/27/2026 documented as of this encounter Procedures Procedure Name Priority Date/Time Associated Diagnosis Comments XR HIP 2 OR 3 VIEWS LEFT Routine 05/28/2025 12:44 PM EDT Left hip pain documented in this encounter Results * XR Hip 2 or 3 Views Left (05/28/2025 12:44 PM EDT) Anatomical Region Laterality Modality Lower Extremities, Hip Left Radiograp hic Imaging 05/28/2025 12:4 4 PM EDT Narrative 05/28/2025 12:58 PM EDT [address] [address] XRay Report Signed Patient: Edis Wright MR#: [id number] : 1965 Acct:[id number] Age/Sex: 59 / M ADM Date: 05/28/25 Loc: HO.XRAY Attending Dr: Rajat Leonard MD Ordering Physician: Rajat Leonard MD Date of Service: 05/28/25 Procedure(s): XR hip LT min 2V Accession Number(s): [id number] cc: Rajat Leonard MD Reason for Exam: left hip pain EXAMINATION: XR HIP 2 OR MORE VIEWS LEFT HISTORY: left hip pain COMPARISON: There are no prior studies available for comparison. FINDINGS: Two views of the left hip are submitted. Osseous mineralization is normal. There is no fracture or dislocation. The joint space is maintained. The soft tissues are unremarkable. XR/XR hip LT min 2V IMPRESSION: Unremarkable examination of the left hip. Electronically signed by: Olu Amin MD 05/28/2025 12:55 PM EDT Dictated By: Olu Amin MD Signed By: <Electronically signed by Olu Amin MD in OV> 05/28/25 1255 DD/ 1244 TD/TT: 05/28/25 1245 Inside Sales Advertising Executive: Procedure Note Donotuseinterpreter, Image - 05/28/[address] [address] XRay Report Signed Patient: January Wright#: [id number] : 1965Acct:[id number] Age/Sex: 59 / MADM Date: 05/28/25 Loc: HO.XRAY Attending Dr: Rajat Leonard MD Ordering Physician: Rajat Leonard MD Date of Service: 05/28/25 Procedure(s): XR hip LT min 2V Accession Number(s): [id number] cc: Rajat Leonard MD Reason for Exam: left hip pain EXAMINATION: XR HIP 2 OR MORE VIEWS LEFT HISTORY: left hip pain COMPARISON: There are no prior studies available for comparison. FINDINGS: Two views of the left hip are submitted. Osseous mineralization is normal. There is no fracture or dislocation. The joint space is maintained. The soft tissues are unremarkable. XR/XR hip LT min 2V IMPRESSION: Unremarkable examination of the left hip. Electronically signed by: Olu Amin MD 05/28/2025 12:55 PM EDT RP Dictated By: Olu Amin MD Signed By: <Electronically signed by Olu Amin MD in OV> 05/28/25 1255 DD/ 1244 TD/TT: 05/28/25 1245 Inside Sales Advertising Executive: Rajat Leonard MD IMG XR PROCEDURES Final Res ult documented in this encounter Visit Diagnoses Diagnosis Muscle strain- Primary Unspecified site of sprain and strain Left hip pain Pain in joint, pelvic region and thigh documented in this encounter Additional Health Concerns Assessment Noted Time PHQ-9 Depression Total Score: 3 11/06/19 25 12:17 PM EDT documented as of this encounter Care Teams Tech Ed/Woodshop Teacher Relationship Specialty Start Date End Date Rajat Leonard MD [address] [place] [address] PCP - General Internal Medicine 01/04/13 documented as of this encounter
--- NOTE | ~2025-05-28 | XR_ITS ---
EXAMINATION: XR HIP 2 OR MORE VIEWS LEFT HISTORY: left hip pain COMPARISON: There are no prior studies available for comparison. FINDINGS: Two views of the left hip are submitted. Osseous mineralization is normal. There is no fracture or dislocation. The joint space is maintained. The soft tissues are unremarkable. XR/XR hip LT min 2V IMPRESSION: Unremarkable examination of the left hip. Electronically signed by: Olu Amin MD 05/28/2025 12:55 PM EDT
--- OUTSIDE RECORDS SUMMARY | 2025-05-28 13:31 | XMS_ITS | Encounter Summary ---
Author Organization [employer] Address [address] [facility] 7t [place] [address] Care Team Providers Care Insights Strategist Name Role Phone Rajat Leonard MD Primary Care Provider [phone]- [phone] Encounter Details Date Type Department Care Team ([facility] Contact Info) Description 05/27/2025 Telephone [facility] MED & PEDS [address] [place], [place] [phone] Rajat Leonard MD [address] [place], [place] [phone] Social History Tobacco Use Types Packs/Day Years [...] encounter Miscellaneous Notes * Telephone Encounter - Shalini Baires RN - 05/27/2025 8:41 AM EDT Pt walked in stating having sciatica. Pt did receive an injection but states does not want to proceed. Pt wants to discuss alternatives with PCP. Pt agrees to return later today. documented in this encounter Plan of Treatment Upcoming Encounters Date Type Department Care Team ([facility] st Contact Info) Description 07/08/2025 9:15 AM EST Office Visit [facility] MED & PEDS [address] [place] [address] Rajat Leonard MD [address] [place] [address] documented as of this encounter Visit Diagnoses Not on filedocumented in this encounter Additional Health Concerns Assessment Noted Time PHQ-9 Depression Total Score: 3 11/06/19 25 12:17 PM EDT documented as of this encounter Care Teams Insights Strategist Relationship Specialty Start Date End Date Rajat Leonard MD [address] [place] [address] PCP - General Internal Medicine 01/04/13 documented as of this encounter
--- OUTSIDE RECORDS SUMMARY | 2025-05-28 13:31 | XMS_ITS | Encounter Summary ---
Author Organization [employer] Address [address] [facility] 7t [place] [address] Care Team Providers Care Tennis Instructor Name Role Phone Rajat Leonard MD Primary Care Provider [phone]- [phone] Encounter Details Date Type Department Care Team (Latest Contact Info) Description 05/27/2025 Travel Social History Tobacco Use Types Packs/Day [...] Description 07/08/2025 9:15 AM EST Office Visit [facility] MED & PEDS [address] [place] [address] Rajat Leonard MD [address] [place] [address] documented as of this encounter Visit Diagnoses Not on filedocumented in this encounter Additional Health Concerns Assessment Noted Time PHQ-9 Depression Total Score: 3 11/06/19 25 12:17 PM EDT documented as of this encounter Care Teams Tennis Instructor Relationship Specialty Start Date End Date Rajat Leonard MD [address] [place] [address] PCP - General Internal Medicine 01/04/13 documented as of this encounter
--- OUTSIDE RECORDS SUMMARY | 2025-05-28 13:31 | XMS_ITS | Encounter Summary ---
Author Organization [employer] Address [address] [facility] 7t [place] [address] Care Team Providers Care Sheetmetal Patternmaker Name Role Phone Rajat Leonard MD Primary Care Provider [phone]- [phone] Encounter Details Date Type Department Care Team ([facility] st Contact Info) Description 07/30/2024 Orders Only [facility] MED & PEDS [address] [place] [address] Provider, MD Vipul Social History Tobacco Use [...] Description 07/08/2025 9:15 AM EST Office Visit [facility] MED & PEDS [address] [place] [address] Rajat Leonard MD [address] [place] [address] documented as of this encounter Procedures Procedure Name Priority Date/Time Associated Diagnosis Comments DIABETES EYE EXAM Routine 07/30/2024 3:18 PM EST documented in this encounter Results * Diabetes Eye Exam (07/30/2024 3:18 PM EST) us Historical Provider HEALTH MAINTENANCE Final Result documented in this encounter Visit Diagnoses Not on filedocumented in this encounter Additional Health Concerns Assessment Noted Time PHQ-9 Depression Total Score: 16 023 1:25 PM EST documented as of this encounter Care Teams Sheetmetal Patternmaker Relationship Specialty Start Date End Date Rajat Leonard MD [address] [place] [address] PCP - General Internal Medicine 01/04/13 documented as of this encounter
--- OUTSIDE RECORDS SUMMARY | 2025-05-28 13:31 | XMS_ITS | Encounter Summary ---
Author Organization [employer] Address [address] [place] [address] Care Team Providers Care Business Center Representative Name Role Phone Rajat Leonard MD Primary Care Provider [phone]- [phone] Reason for Referral * Consultation (Routine) - Closed Specialty Diagnoses / Procedures Referred By Santana vergara Referred To Contact Nutrition Diagnoses Type 2 diabetes mellitus without complication, without long-term current use of insulin (HCC) Rajat Leonard MD [address] [place] [address] Phone: tel: fax: Referral ID Status Reason Start Date Expiration Date V isits Requested Visits Authorized [id number] Closed Consult and Treat 11/07/2024 11/07/2025 1 1 * Consultation (Routine) - Pending Review Specialty Diagnoses / Procedures Referred By Santana vergara Referred To Contact Internal Medicine Diagnoses Loud snoring Rajat Leonard MD [address] [place] [address] Phone: tel: fax: Sleep Medicine Service [facility] [address] [facility], [address] [place] [address] Phone: tel: fax: Referral ID Status Reason Start Date Expiration Date Visits Requested Visits Authorized [id number] Pending Review Specialty Services Required 11/07/2024 11/07/2025 1 1 Encounter Details Date Type Department Care Team (Late st Contact Info) Description 11/07/2024 Orders Only [facility] MED[facility] [address] [place] [address] Rajat Leonard MD [address] [place] [address] Loud snoring (Primary Dx); Type 2 diabetes mellitus without complication, without long-term current use of insulin ([facility]) Social History Tobacco Use Types Packs/Day Years [...] your housing situation today? I have janet sing 11/05/[address] you li [...] [facility] [address] [place] [address] Rajat Leonard MD [address] [place] [address] Scheduled Referrals Name Type Priority Associated Diagnoses Orde r Schedule Referral to Nutrition Therapy Outpatient Referral Routine Type 2 diabetes mellitus without complication, without long-term current use of insulin ([facility]/HCC) Expected: 11/07/2024 (Approximate), Expires: 11/07/2025 documented as of this encounter Procedures Procedure Name Priority Date/Time Associated Diagnosis Comments AMB REFERRAL TO SLEEP MEDICINE Routine 05/14/2025 Loud snoring documented in this encounter Results * Referral to Sleep Medicine (05/14/2025) us Rajat Leonard MD OUTPATIENT REFERRAL ORDERAB LES Final Result documented in this encounter Visit Diagnoses Diagnosis Loud snoring- Primary Type 2 diabetes mellitus without complication, without long-term current use of insulin ([facility]) documented in this encounter Additional Health Concerns Assessment Noted Time PHQ-9 Depression Total Score: 3 11/06/19 25 12:17 PM EDT documented as of this encounter Care Teams Business Center Representative Relationship Specialty Start Date End Date Rajat Leonard MD [address] [place] [address] PCP - General Internal Medicine 01/04/13 documented as of this encounter
--- OUTSIDE RECORDS SUMMARY | 2025-05-28 13:31 | XMS_ITS | Clinical Summary ---
Author Organization [employer] Address [address] [place] [address] 7[address] [place] [address] Care Team Providers Care Customer Success Manager Name Role Phone Rajat Leonard MD Primary Care Provider Allergies No known active allergies Medications docusate sodium (Colace) 100 MG capsule take 1 capsule by oral route every day at bedtime as needed for constipation 022 Active ketotifen (Zaditor) 0.025 % ophthalmic solution PLACE ONE DROP IN THE AFFECTED EYE(S) TWICE DAILY 022 Active cetirizine (ZyrTEC) 10 MG tabletIndications :Type 2 diabetes mellitus without complications (HCC) TAKE ONE TABLET BY MOUTH EVERY MORNING 30 tablet 023 Active Blood Pressure kitIndications:Es sential hypertension To check the BP 3 times a week. 1 kit 024 Active Diclofenac Sodium 1 % gelIndications:Mu ltiple joint pain To apply to the affected area 4 times a day 100 g 1 024 Active B-Complex, Folic Acid, tabletIndications :Type 2 diabetes mellitus without complication, without long-term current use of insulin (HCC) TAKE ONE TABLET DAILY AT NOON 90 tablet 1 024 Active ketoconazole (NIZOral) 2 % shampooIndication s:Seborrheic dermatitis Apply topically 2 (two) times a week. 120 mL 1 024 Active Ketotifen Fumarate (Zaditor) 0.035 % solutionIndicatio ns:Allergic conjunctivitis of both eyes Administer 1 drop into affected eye(s) 2 times daily. 10 mL 025 Active hydrocortisone 2.5 % creamIndications: Allergic contact dermatitis due to other agents Apply topically 2 times daily. 20 g Active cetirizine (ZyrTEC) 10 MG tabletIndications :Seasonal allergies Take 1 tablet (10 mg) by mouth in the morning. 30 tablet Active fluticasone (Flonase Sensimist) 27.5 MCG/SPRAY nasal sprayIndications: Seasonal allergies Administer 1-2 sprays into each nostril Once per day. 10 g 2 2025 Active Easy Touch Lancets 33G/Twist miscIndications:T ype 2 diabetes mellitus without complications (HCC) TEST BLOOD SUGAR TWICE DAILY DIRECTED 100 each Active aspirin (Aspirin Adult Low Strength) 81 MG EC tablet Take 1 tablet (81 mg) by mouth Once per day. 90 tablet Active rosuvastatin (Crestor) 40 MG tablet Take 1 tablet (40 mg) by mouth Once per day. 90 tablet Active FREESTYLE LITE test stripIndications: Type 2 diabetes mellitus without complications (HCC) TEST BLOOD SUGAR TWICE DAILY 100 strip Active glimepiride (Amaryl) 2 MG tablet TAKE ONE TABLET EVERY MORNING 90 tablet Active fenofibrate (Triglide) 160 MG tabletIndications :Chronic hepatitis C without hepatic coma (HCC) TAKE ONE TABLET EVERY EVENING 30 tablet Active Farxiga 5 MG TAKE ONE TABLET EVERY MORNING 30 tablet Active losartan (Cozaar) 50 MG tabletIndications :Essential hypertension TAKE ONE TABLET DAILY AT NOON 30 tablet 025 Active Vitamins-Lipotrop ics (B Complex Formula 1, Lipotrop,) tabletIndications :Type 2 diabetes mellitus without complications (HCC) TAKE ONE TABLET DAILY AT NOON 30 tablet Active amLODIPine (Norvasc) 10 MG tabletIndications :Essential (primary) hypertension TAKE ONE TABLET DAILY AT NOON 30 tablet 025 Active metFORMIN (Glucophage) 1000 MG tabletIndications :Type 2 diabetes mellitus without complication, without long-term current use of insulin (HCC) TAKE ONE TABLET IN THE MORNING AND EVENING WITH MEALS 60 tablet 11 025 Active hydroCHLOROthiazi de (Microzide) 12.5 MG capsuleIndication s:Essential hypertension TAKE ONE CAPSULE DAILY AT NOON 30 capsule 11 025 Active celecoxib (CeleBREX) 200 MG capsuleIndication s:Muscle strain Take 1 capsule (200 mg) by mouth 2 times daily. 60 capsule 025 2024 Active tiZANidine (Zanaflex) 4 MG tabletIndications :Muscle strain Take 1 tablet (4 mg) by mouth every 8 (eight) hours if needed for muscle spasms. 1 tab 2 times a day 30 tablet 1 025 Active tiZANidine (Zanaflex) 4 MG tabletIndications :Chronic left-sided low back pain with left-sided sciatica Take 1 tablet (4 mg) by mouth every 8 (eight) hours if needed for muscle spasms. 1 tab 2 times a day 30 tablet 1 023 2024 Discontinued(R eorder (will not trigger notification to Pharmacy)) tiZANidine (Zanaflex) 4 MG capsuleIndication s:Chronic left-sided low back pain with left-sided sciatica Take 1 capsule (4 mg) by mouth 3 times daily. 90 capsule 11 023 2024 Discontinued Active Problems Problem Noted Date Diagnosed Date Diabetes mellitus 09/13/2012 Pure hypercholesterolemia 10/11/2011 Essential hypertension 09/16/2011 Contact dermatitis 09/08/2011 Resolved Problems Problem Noted Date Diagnosed Date Resolved Date Chronic hepatitis C (CMS/HCC) 07/08/2016 01/24/2025 Encounters Date Type Department Care Team Description 05/27/2025 10:15 AM EDT Office Visit [facility] [address] [place] [address] Rajat Leonard MD Muscle strain (Primary Dx); Left hip pain 05/27/2025 Travel 05/27/2025 Telephone [facility] [address] [place] [address] Rajat Leonard MD 04/26/2025 Refill [facility] [address] [place] [address] Rajat Leonard MD Chronic hepatitis C without hepatic coma (CMS/HCC); Essential hypertension; Type 2 diabetes mellitus without complications (CMS/HCC); Essential (primary) hypertension; Type 2 diabetes mellitus without complication, without long-term current use of insulin (CMS/HCC) 04/25/2025 Refill [facility] PEDS [address] [place] [address] Rajat Leonard MD 03/08/2025 Telephone [facility] MEDICINE [address] [place], [place] [phone] Rajat Leonard MD Referral 03/02/2025 Refill [facility]EDS [address] [place], [place] [phone] Rajat Leonard MD Seasonal allergies 02/28/2025 Refill [facility] MED[facility] [address] [place], [place] [phone] Rajat Leonard MD Type 2 diabetes mellitus without complications ([facility]/HCC) from Last 3 Months Immunizations Immunization Administration Dates Next Due Hep A, Adult 11/05/2024 Hep B, adult 02/06/2025,11/05/2024 Influenza injectable quadriv alent IIV4 with preservative [...] Mass Index 31.93 05/27/2025 10:07 AM EDT Plan of Treatment Upcoming Encounters Date Type Department Care Team (Late st Contact Info) Description 07/08/2025 9:15 AM EST Office Visit [facility]EDS [address] [place] [address] Rajat Leonard MD [address] [place] [address] Health Maintenance Due Date Last Done Comments CT Colonography 1965 FIT DNA/Cologuard 1965 FIT 1965 FOBT 1965 Sigmoidoscopy 1965 Disability Screening 1965 RSV Patients and Patients Aged 60 years or older (1 - Risk 60-74 years 1-dose series) 2024 COVID-19 Vaccine (3 - 2024- season) 2025 05/05/2021, 04/14/2021 Hepatitis A Vaccines (2 of 2 - Risk 2-dose series) 05/08/2025 11/05/2024 Hepatitis B Vaccines (3 of 3 - Risk 3-dose series) 05/08/2025 02/06/2025, 11/05/2024 Eye Exam 07/30/2025 07/30/2024 Diabetes: Hemoglobin A1C 08/08/2025 025, 11/05/2024, 05/03/2024, Additional history exists Alcohol/Substance Use Screening 11/05/2025 11/05/2024 Depression Screening 11/05/2025 11/05/2024, 11/06/19 SDOH Screening 11/05/2025 11/05/2024 Diabetes: Foot Exam 01/10/2026 01/10/2025 Diabetes: Urine Protein Screening 01/11/2026 01/11/2025, 04/20/2022 Lipid Panel 01/11/2026 01/11/2025, 04/30, 04/20/2022 DTaP/Tdap/Td Vaccines (2 - Td or Tdap) 01/15/2026 01/16/2016 Tobacco Screening 02/06/2026 02/06/2025 Influenza Vaccine (#1) 2026 07/01/2021, 2016 Postponed from 04/29/2025 (Patient Refused) Colonoscopy 11/25/2032 Colorectal Cancer Screening 11/25/2032 Zoster Vaccines Completed 05/13/2020, 10/11/2019 Pneumococcal Vaccine: 50+ Years Completed 11/05/2024 HIV Screening Completed 01/11/2025 HIB Vaccines Aged Out No longer eligi [...] 05/28/2025 12:44 PM EDT Left hip pain AMB REFERRAL TO SLEEP MEDICINE Routine 05/14/2025 Loud snoring POCT GLYCATED HEMOGLOBIN, TOTAL Routine 02/06/2025 10:17 AM EDT Diabetes mellitus due to underlying condition without complication, without long-term current use of insulin ([facility]) Encounter for immunization ALBUMIN, RANDOM URINE W/CREATININE Routine 01/11/2025 8:30 AM EDT Type 2 diabetes mellitus without complication, without long-term current use of insulin ([facility]) HIV 1/2 ANTIGEN/ANTIBODY, FOURTH GENERATION W/RFL Routine 01/11/2025 8:24 AM EDT Unintentional weight loss LIPID PANEL, STANDARD Routine 01/11/2025 8:24 AM EDT Pure hypercholesterolemia HM DIABETES EYE EXAM Routine 07/30/2024 3:18 PM EST from Last 3 Months or Most Recently Relevant to Health Maintenance Results * XR Hip 2 or 3 Views Left (05/28/2025 12:44 PM EDT) Anatomical Region Laterality Modality Lower Extremities, Hip Left Radiograp hic Imaging 05/28/2025 12:4 4 PM EDT Narrative 05/28/2025 12:58 PM EDT [address] [address] XRay Report Signed Patient: Edis Wright MR#: [id number] : 1965 Acct:[id number] Age/Sex: 59 / M ADM Date: 05/28/25 Loc: HO.XRAY Attending Dr: Rajat Leonard MD Ordering Physician: Rajat Leonard MD Date of Service: 05/28/25 Procedure(s): XR hip LT min 2V Accession Number(s): [id number] cc: Rajat Leonard MD Reason for Exam: [...] Amin MD Signed By: <Electronically signed by Oul Amin MD in OV> 05/28/25 1255 DD/ 1244 TD/TT: 05/28/25 1245 Forest Fire Control Officer: Procedure Note Donotuseinterpreter, Image - 05/28/[address] [address] XRay Report Signed Patient: Edis WrightMR#: [id number] : 1965Acct:[id number] Age/Sex: 59 / MADM Date: 05/28/25 Loc: HO.XRAY Attending Dr: Rajat Leonard MD Ordering Physician: Rajat Leonard MD Date of Service: 05/28/25 Procedure(s): XR hip LT min 2V Accession Number(s): [id number] cc: Rajat Leonard MD Reason for Exam: [...] 05/28/25 1255 DD/ 1244 TD/TT: 05/28/25 1245 Forest Fire Control Officer: us Rajat Leonard MD IMG XR PROCEDURES Final Res ult * Referral to Sleep Medicine (05/14/2025) us Rajat Leonard MD OUTPATIENT REFERRAL ORDERAB LES Final Result * (ABNORMAL) POCT HGB A1C (02/06/2025 10:17 AM EDT) Hemoglobin A1C 6.4(A) 4.0 - 6.0 % QC Media Lot # [id number] Lot# Expiration Date Blood 02/06/2025 10:1 7 AM EDT us Rajat Leonard MD POINT OF CARE TEST ENTER/ED IT ORDERABLES Final Result * Albumin, Random Urine W/Creatinine (01/11/2025 8:30 AM EDT) Creatinine, Urine 224.03 mg/dL [facility] Microalbumin Urine 16.0 mg/L [facility] Microalbum Creatinine Ratio Ur 7.1 <30 ug/mg cr [facility] Comment:Albumin/Creatinine R atio Reference Ranges: Normal: < 30 ug/mg creatinine Microalbuminuria: 30 - 300 ug/mg creatinineClinical Albuminuria: > 300 ug/mg creatinine Urine (Urine, Random) 01/11/2025 8:30 AM EDT 01/11/2025 2:28 PM EDT us Rajat Leonard MD LAB URINE ORDERABLES Final Result Performing Organization Address City/[facility]/ZIP Co de Phone Number [facility] [address] [place] [phone] [phone] * HIV-1/2 Antigen and Antibodies, Fourth Generation, with Reflexes (01/11/2025 8:24 AM EDT) Pathologist [facility] HIV AB/AG Nonreactive Nonreactive [facility] Comment:HIV-1 p24 Ag and/or HIV-1/HIV-2 Ab not detected.A test result that is nonreactive does not exclude thepossibility of exposure to or infection with HIV-1 and/orHIV-2. Nonreactive results in this assay for individualswith prior exposure to HIV-1 and/or HIV-2 may be due toantigen and antibody levels that are below the limit ofdetection of this assay.[employer] HIV Ag/Ab Combo assay result andsupplemental assay results should be interpreted inconjunction with the patient's clinical presentation,history and other laboratory results. If the results areinconsistent with clinical evidence, additional testing issuggested to confirm the result. Blood Venous blood specimen / Unknown 01/11/2025 8:24 AM EDT 01/11/2025 2:27 PM EDT us Rajat Leonard MD LAB BLOOD ORDERABLES Final Result Performing Organization Address City/[facility]/ZIP Co de Phone Number [facility] [address] [place] [phone] * (ABNORMAL) Lipid Panel, Standard (01/11/2025 8:24 AM EDT) Pathologist [facility] Triglycerides 249(H) <150 mg/dL [facility] Comment:Desirable Triglyceri de: less than 150 mg/dLBorderline High Triglyceride 150-199 mg/dLHigh Triglyceride: 200-499 mg/dLVery High Triglyceride: greater than or equal to 5OO mg/dL Cholesterol 138 <200 mg/dL [facility] Comment:Desirable Cholestero l: less than 200 mg/dLBorderline High Cholesterol: 200-239 mg/dLHigh Cholesterol: greater than 239 mg/dL LDL Cholesterol Calculated 45 <100 mg/dL [facility] Comment:Desirable LDL: less than 100 mg/dLNear Optimal/Above Optimal LDL: 110- 129 mg/dLBorderline High LDL: 130-159 mg/dLHigh LDL: 160-189 mg/dLVery High LDL: greater than or equal to 190 mg/dL HDL Cholesterol 44 >40 mg/dL [facility] Comment:Desirable HDL: great er than 40 mg/dL Note: This HDL assay may give artificially low results in patients with liver disease. Blood Venous blood specimen / Unknown 01/11/2025 8:24 AM EDT 01/11/2025 2:27 PM EDT Rajat Leonard MD LAB BLOOD ORDERABLES Final Result [facility] [address] [place] [phone] [phone] * Diabetes Eye Exam (07/30/2024 3:18 PM EST) Historical Provider HEALTH MAINTENANCE Final Result from Last 3 Months or Most Recently Relevant to Health Maintenance Insurance [facility] Member Subscriber Plan / Payer (Ef fective 2025-Present) Name:Edis Wright Relation to Subscriber:Self Name:Edis Wright Payer ID:Not on file Group ID:[id number] Type:Not on file Address: [address] ONE CARE < 65 Care Teams Customer Success Manager Relationship Specialty Start Date End Date Rajat Leonard MD [address] [place] [phone] PCP - General Internal Medicine 01/04/13
--- OUTSIDE RECORDS SUMMARY | 2025-05-28 13:31 | XMS_ITS | Encounter Summary ---
Author Organization [employer] Address [address] [place] [address] [address], [place] [address] Care Team Providers Care Meteorological Observer Name Role Phone Rajat Leonard MD Primary Care Provider [phone]- [phone] Reason for Referral * Imaging (Routine) - Closed Specialty Diagnoses / Procedures Referred By Santana vergara Referred To Contact Radiology Diagnoses Chronic hepatitis C without hepatic coma (HCC) Procedures US Abdomen Complete Rajat Leonard MD [address] [place] [address] Phone: tel: fax: [address] Phone: tel: fax: Referral ID Status Reason Start Date Expiration Date Visits Re quested Visits Authorized [id number] Closed 05/25/2024 05/25/2025 1 1 * Imaging (Routine) - Closed Specialty Diagnoses / Procedures Referred By Santana vergara Referred To Contact Radiology Diagnoses Chronic hepatitis C without hepatic coma (HCC) Procedures US Abdomen Complete Rajat Leonard MD [address] [place] [address] Phone: tel: fax: [address] Phone: tel: fax: Referral ID Status Reason Start Date Expiration Date Visits Re quested Visits Authorized [id number] Closed 05/21/2024 05/21/2025 1 1 Encounter Details Date Type Department Care Team ([facility] st Contact Info) Description 05/21/2024 Orders Only [facility] [address] [facility] [place] [address] Rajat Leonard MD [address] [place] [address] Chronic hepatitis C without hepatic coma (CMS/HCC) [...] Description 07/08/2025 9:15 AM EST Office Visit [facility] [address] [place] [address] Rajat Leonard MD [address] [place] [address] Scheduled Orders Name Type Priority Associated Diagnoses [...] Diagnosis Chronic hepatitis C without hepatic coma (HCC)- Primary documented in this encounter Additional Health Concerns Assessment Noted Time PHQ-9 Depression Total Score: 16 023 1:25 PM EST documented as of this encounter Care Teams Meteorological Observer Relationship Specialty Start Date End Date Rajat Leonard MD [address] [place] [address] PCP - General Internal Medicine 01/04/13 documented as of this encounter
--- OUTSIDE RECORDS SUMMARY | 2025-05-28 13:31 | XMS_ITS | Encounter Summary ---
Author Organization [employer] Address [address] [place] [address] [address] [place] [address] Care Team Providers Care Special Educator Name Role Phone Rajat Leonard MD Primary Care Provider Reason for Visit * Reason Comments Med Refill Encounter Details Date Type Department Care Team ([facility] Contact Info) Description 03/23/2023 Refill [facility] PEDS [address] [place] [address] Rajat Leonard MD [address] [place] [address] Essential (primary) hypertension; Type 2 diabetes mellitus without complication, without long-term current use of insulin ([facility]); Essential hypertension Social History Tobacco Use Types [...] Upcoming Encounters Date Type Department Care Team ([facility] Contact Info) Description 07/08/2025 9:15 AM EST Office Visit [facility]EDS [address] [place] [address] Rajat Leonard MD [address] [place] [address] documented as of this encounter Visit Diagnoses Diagnosis Essential (primary) hypertension Unspecified essential hypertension Type 2 diabetes mellitus without complication, without long-term current use of insulin (HCC) Essential hypertension Unspecified essential hypertension documented in this encounter Additional Health Concerns Assessment Noted Time PHQ-9 Depression Total Score: 2 08/24/20 22 3:35 PM EST documented as of this encounter Care Teams Special Educator Relationship Specialty Start Date End Date Rajat Leonard MD [address] [place] [phone] PCP - General Internal Medicine 01/04/13 documented as of this encounter
--- OUTSIDE RECORDS SUMMARY | 2025-05-28 13:31 | XMS_ITS | Encounter Summary ---
Author Organization [employer] Address [address] [facility] [address] [place] [address] Care Team Providers Care Production Cloth Cutter Name Role Phone Rajat Leonard MD Primary Care Provider [phone]- [phone] Reason for Visit * Reason Onset Date Comments Referral 11/06/2024 Encounter Details Date Type Department Care Team ([facility] Contact Info) Description 11/06/2024 Telephone [facility] [address] [place] [address] Rajat Leonard MD [address] [place] [address] Referral Social History Tobacco Use Types Packs/Day [...] Miscellaneous Notes * Telephone Encounter - Arielle Laek RN - 11/06/2024 3:03 PM EDT TC placed to Karmen Darnell, Industrial Gas Fitter Helper for [facility] [employer]. [place] states the pt was seen yesterday and was supposed to speak to the provider about getting a referral for a sleepstudy. Pt was reminded multiple times by [place], but pt is forgetful and forgot to speak to PCP about referral. [place] reports that the pt informed her he had a sleep study 2-3 years ago, but would need a new referral for a new sleep study in order to obtain the CPAP that he needs. 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 Message forwarded to PCP to review and advise. * Telephone Encounter - Melissa Brown - 11/06/2024 1:50 PM EDT Tc from Karmen Darnell, Industrial Gas Fitter Helper for [facility] [employer] requesting a referral for a sleep study and also would like a nutritions referral. Caller states was supposed to be discussed on last visit. Please call to clarify. documented in this encounter Plan of Treatment Upcoming Encounters Date Type Department Care Team ([facility] st Contact Info) Description 07/08/2025 9:15 AM EST Office Visit [facility] MED & PEDS [address] [place] [address] Rajat Leonard MD [address] [place] [address] documented as of this encounter Visit Diagnoses Not on filedocumented in this encounter Additional Health Concerns Assessment Noted Time PHQ-9 Depression Total Score: 3 11/06/19 25 12:17 PM EDT documented as of this encounter Care Teams Production Cloth Cutter Relationship Specialty Start Date End Date Rajat Leonard MD [address] [place] [address] PCP - General Internal Medicine 01/04/13 documented as of this encounter
--- OUTSIDE RECORDS SUMMARY | 2025-05-28 13:31 | XMS_ITS | Encounter Summary ---
Author Organization [employer] Address [address] [facility] [address]t [place] [address] Care Team Providers Care Farm Forestry And Garden Workers Name Role Phone Raajt Leonard MD Primary Care Provider [phone]- [phone] Reason for Visit * Reason Comments Med Refill Encounter Details Date Type Department Care Team ([facility] st Contact Info) Description 03/02/2025 Refill [facility]EDS [address] [place], [place] [phone] Rajat Leonard MD [address] [place] [address] Seasonal allergies Social History Tobacco Use Types Packs/Day Years [...] Description 07/08/2025 9:15 AM EST Office Visit [facility] [address] [place] [address] Rajat Leonard MD [address] [place] [address] documented as of this encounter Visit Diagnoses Diagnosis Seasonal allergies Allergic rhinitis, cause unspecified documented in this encounter Additional Health Concerns Assessment Noted Time PHQ-9 Depression Total Score: 3 11/06/19 25 12:17 PM EDT documented as of this encounter Care Teams Farm Forestry And Garden Workers Relationship Specialty Start Date End Date Rajat Leonard MD [address] [place] [address] PCP - General Internal Medicine 01/04/13 documented as of this encounter
--- OUTSIDE RECORDS SUMMARY | 2025-05-28 13:31 | XMS_ITS | Encounter Summary ---
Author Organization [employer] Address [address] [facility] [address]t [place] [address] Care Team Providers Care Strategic Debriefing Officer Name Role Phone Rajat Leonard MD Primary Care Provider [phone]- [phone] Encounter Details Date Type Department Care Team (Late st Contact Info) Description 06/29/2023 Abstract [facility] MEDICINE [address] [place] [address] Rajat Leonard MD [address] [place], [place] [phone] Social History Tobacco Use Types Packs/Day Years [...] 9:15 AM EST Office Visit [facility] MED [facility] PEDS [address] [place] [address] Rajat Leonard MD [address] [place] [address] documented as of this encounter Visit Diagnoses Not on filedocumented in this encounter Additional Health Concerns Assessment Noted Time PHQ-9 Depression Total Score: 2 08/24/20 22 3:35 PM EST documented as of this encounter Care Teams Strategic Debriefing Officer Relationship Specialty Start Date End Date Rajat Leonard MD [address] [place] [address] PCP - General Internal Medicine 01/04/13 documented as of this encounter
== END 2025-05-28 12:24 | disposition home or self-care (01) ==
LOC: HO.XRAY 12:23
PROVIDERS: PCP Internal Medicine; Visit Provider Internal Medicine
DX: M25.552 Pain in left hip (principal)
CPT/HCPCS: 73502

== ENCOUNTER → 2025-05-28 12:28 | Outpatient (BNV) | payer MEDICAID, SELFPAY | PROVIDERS: PCP Internal Medicine; Visit Provider Radiology Diagnostic Radiology | DX: M25.552 Pain in left hip (principal) | CPT/HCPCS: 73502 ==